=== PATIENT | female | born 1955 | race Caucasian/White ===

== ENCOUNTER → 2017-01-11 | Outpatient (CLI) | payer OTHER ==
[~2017-01-11] MED LIST: ASPEC81 PO; EST1 PO; GABA-113 PO; GEMF600T3 PO; GLC500 PO; INSU70IN2 SC; OXYC-57 PO; VITA400C15 PO
--- NOTE | 2017-01-11 14:42 | MAMMOGRAPHY REPORT ---
BILATERAL DIGITAL SCREENING MAMMOGRAM TOMOSYNTHESIS WITH CAD: 01/11/2017 CLINICAL HISTORY: Routine screening. Patient has no complaints. TECHNIQUE: Breast tomosynthesis in addition to standard 2D mammography was performed. Current study was also evaluated with a Computer Aided Detection (CAD) system. COMPARISON: Comparison is made to exams dated: 07/20/2015 mammogram, 07/17/2014 mammogram, 3 mammogram, 06/25/2012 mammogram, 06/22/2011 mammogram, and 06/21/2010 mammogram - [facility]. BREAST COMPOSITION: There are scattered areas of fibroglandular density in both breasts. FINDINGS: No suspicious masses, calcifications, or areas of architectural distortion are noted in ei ther breast. There has been no significant interval change compared to prior exams. IMPRESSION: ACR BI-RADS CATEGORY 1: NEGATIVE There is no mammographic evidence of malignancy. A 1 year screening mammogram is recommended. The pa tient will receive written notification of the results. Approximately 10% of breast cancers are not detected with mammography. A negative mammographic report should not delay biopsy if a clinically suggestive mass is present. Patti Goyal M.D. ah/:01/11/2017 12:50:24 Storeroom Supervisor: Mitchell FLORES(R)(M), [facility] letter sent: Normal 1/2 BI-RADS Code: ACR BI-RADS Category 1: Negative
== END | disposition home or self-care (01) ==
LOC: C.MAMM 08:37
PROVIDERS: ATTEND Family Medicine
DX: Z12.31 Encounter for screening mammogram for malignant neoplasm of breast (principal)

== ENCOUNTER 2024-03-03 11:19 | Inpatient (IN) ==
--- NOTE | 2024-03-03 12:18 | Emergency Department Note ---
Impression & Plan Stroke ED Provider Note Name: SANYA SPRAGUE Age: 68 Sex: Female Arrives Via: Walk-In Informant: Patient ED Provider: Tian Frausto MD Chief Complaint: Stroke evaluation Impression: As per impressions above Medical Decision Making: Pleasant 68-year-old female with history dyslipidemia, type 2 diabetes, smoking history, family history of stroke arrives for evaluation of strokelike symptoms ongoing for the last week. She is already been evaluated outside hospital where CT head and CTA were obtained which she reports were unremarkable. She had been discharged from their facility to attempt getting outpatient MRI versus go to other ER apparently. Patient arrives with weakness of the left face and left leg and some ataxia issues. Not a stroke alert or TNKase candidate given symptoms going on for a week now. CT of the head was obtained here without angios as they do ready been obtained. CT of the head does show an evolving stroke. She is already on aspirin and Plavix. I discussed the case with the hospitalist will bring her in for further management and workup. Triage/Nursing Notes reviewed by Me External Chart Review by me: I did review the records that the patient brought from her discharge from [facility] 02/29/2024 noting EKG laboratory and imaging findings. Differential: Stroke, dissection, migraine, intracranial hemorrhage, tumor, electrolyte imbalance, spinal pathology, many other pathologies considered Vital Signs: reviewed and remarkable for no significant abnormalities Labs:ED labs Reviewed by me and remarkable for no significant abnormalities Imaging:CT of the head without contrast as per my informal interpretation reveals no intracranial hemorrhage or mass effect. Per radiologist there is concerning findings for stroke in the basal ganglia EKG:As per my interpretation. Indication strokelike symptoms. Normal sinus rhythm at 67 bpm with a left bundle branch block. No ectopy no ischemia appreciated. QTc 494. When compared EKG of February 29, 2024 from [facility] similar morphology Consults:Discussed with Dr. Henao of the [facility] service who will bring in for further management and evaluation. Plan: Disposition:Hospitalization. Condition: Good History of Present Illness: 68-year-old female arrives for evaluation of strokelike symptoms. Patient notes that last Sunday (1 week ago) patient noted she awoke feeling foggy and felt like she was not moving as quickly as she usually did. Over the next couple days she noted her left leg seemed to be dragging at times. On Sunday she was pulled over by the police because she was driving somewhat erratically. Patient notes she does not really remember the episode very well but ended up going to [facility]. While there she started feeling better. They had told her that her left face was weak and her left leg was weak. They obtained a CT of the head with angiography of the head and neck. They told her that she most likely had a stroke and started on aspirin and Plavix. Patient was offered to wait 3 days and they are ER for a bed out and need to get an MRI versus being discharged to go on her own accord. Patient opted to be discharged. She arrives this morning as she attempted to see her PCP instead of going to ER but was told by PCP office that she should come to the ER for further evaluation and get MRI done. Patient states she is currently feeling well. She does not currently have any sort of headache or fatigue. She admits that she just cannot walk straight any longer. Her left leg is weaker than the right. No worsening over the last few days. She has not noticed any weakness in her hands. Denies any visual changes. No falls, trauma, injuries. She is denying any chest pain, shortness of breath, abdominal pain, nausea, vomiting, leg swelling, bleeding/bruising, other concerning signs or symptoms. Past Medical History: Dyslipidemia, left bundle branch block, type 2 diabetes Patient notes she has a 20-year smoking history having quit few months ago. Home Medications: Aspirin 81 mg, Plavix 75 mg daily amongst others see below. Allergies: Soma, morphine, statins, sulfa Vitals:Blood Pressure: 106/83, Pulse 85, RR 16, T 36.6C, O2 98% on RA Physical Exam: GENERAL: Patient is well appearing and in no acute distress. RESPIRATORY: No dyspnea. Clear to auscultation and equal bilaterally. CARDIOVASCULAR: Regular rate and rhythm.No murmur appreciated. GASTROINTESTINAL: Abdomen soft, non-tender, no peritonitis. BACK: No midline tenderness, no CVA tenderness EXTREMITIES: Normal motion all extremities, no cyanosis, no edema. NEUROLOGIC: Alert and oriented. Some vague left lower facial weakness and mild left periorbital muscular weakness. Fully controllable with voluntary motion. No other cranial nerve deficits appreciated. Patient does not have any ataxia of arms and has 5 out of 5 strength. She does have 5 out of 5 strength bilateral legs though left is somewhat weaker and appears a bit ataxic having not been able to do typical [id number]. SKIN: No rash, no jaundice, no diaphoresis. PSYCH: Appropriate GCS: 15 ED Course: Times/Reassessments: Patient stable throughout comfortable. Although patient was initially seen in critical pathways waiting room while awaiting her bed. 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 History of diabetic ulcer of foot Transient ischemic attack (TIA) few years ago, no deficits LBBB (left bundle branch block) Seasonal allergies Diverticular disease GERD (gastroesophageal reflux disease) Anxiety Peripheral neuropathy Hyperlipidemia Surgical History History of cholecystectomy Family history of reaction to anesthesia MOTHER/SISTER PONV Hx of cataract extraction BILAT History of hysterectomy Hx of foot surgery LEFT HAMMER TOE FIXED THEN INFECTED WITH AMPUTATION Hx of rotator cuff surgery LEFT History of colonoscopy Family History Sister Family history of diabetes mellitus Brother Family history of diabetes mellitus Mother Family history of diabetes mellitus Father Family history of diabetes mellitus Social History Smoking Status: Former smoker Tobacco Type: Cigarettes Do You Dip or Chew Tobacco: No; Hx Alcohol Use: No Hx Substance Use: No Preferred Language: Turkish Communication Ability: Effective Therapist Rrt Required: No Beliefs That Will Affect Care: None Current Living Situation: Spouse Feels Safe at Home: Yes Safety Concerns: Feels Safe At This Time Assistive Devices: Denture - Upper and Glasses Assistive Devices Comment: partial - upper Allergies Allergies Allergy/AdvReac Type Severity Reaction Status Date / Time carisoprodol [From Soma] Allergy Intermediate CONFUSED/COULD Verified 03/03/24 13:45 NOT MOVE morphine Allergy Intermediate SWELLING, Verified 03/03/24 13:45 HIVES [id number] Reductase Allergy Intermediate Hives Verified 03/03/24 13:45 Inhibitor Sulfa (Sulfonamide Allergy Intermediate Hives Verified 03/03/24 13:45 Antibiotics) Home Meds Home Medications Medication Instructions Recorded Confirmed aspirin 81 mg tablet,delayed 81 mg PO PM 08/15/19 03/03/24 release (Aspir-) gemfibrozil 600 mg tablet 600 mg PO BID 08/15/19 03/03/24 insulin aspart U-100 100 unit/mL 1 unit subcut BID 08/15/19 03/03/24 (3 mL) subcutaneous pen (Novolog FlexPen U-100 Insulin aspart) insulin degludec 200 unit/mL (3 50 unit subcut QAM 08/15/19 03/03/24 mL) subcutaneous pen (Tresiba FlexTouch U-200 insulin) citalopram 10 mg tablet 10 mg PO QAM 09/30/19 03/03/24 albuterol sulfate 90 mcg/actuation 2 puff inhalation QID PRN SHORT OF 02/16/20 03/03/24 aerosol inhaler (Ventolin HFA) BREATH omeprazole 20 mg tablet,delayed 20 mg PO PM 02/16/20 03/03/24 release gabapentin 400 mg capsule 400 mg PO TID 02/08/24 03/03/24 cephalexin 500 mg capsule 500 mg PO Q8H 03/03/24 03/03/24 cholecalciferol (vitamin D3) 50 2,000 unit PO PM 03/03/24 03/03/24 mcg (2,000 unit) capsule clopidogrel 75 mg tablet 75 mg PO PM 03/03/24 03/03/24 metformin 500 mg tablet,extended 1,000 mg PO BID 03/03/24 03/03/24 release 24 hr Results & Data (ED) Vital Signs Vital Signs - 24 hr 03/03/24 11:21 03/03/24 13:43 03/03/24 13:44 Temperature 36.6 C Temperature Source Temporal Artery Scan Pulse Rate 85 Pulse Rate [Apical] 42 L Respiratory Rate 16 18 Respiratory Effort / Characteristics Non-Labored Spontaneous Non-Labored Spontaneous Respiratory Depth Normal Normal Respiratory Pattern Regular Blood Pressure 106/83 Blood Pressure [Right Arm] 144/71 H Blood Pressure Mean 90 Blood Pressure Mean [Right Arm] 95 Pulse Oximetry 98 98 98 Oxygen Delivery Method Room Air Room Air Room Air Sepsis Recent Fever Within 48 Hours No Sepsis New/Unexplained Change in Mental Status No Sepsis Action Taken by Nursing No Action Required Laboratory Data 03/04/24 07:13 03/04/24 07:13 Lab Results 03/03/24 Range/Units 11:47 WBC Cancelled RBC Cancelled Hgb Cancelled Hct Cancelled MCV Cancelled MCH Cancelled MCHC Cancelled RDW Std Deviation Cancelled RDW Coeff of Cameron Cancelled Plt Count Cancelled MPV Cancelled Absolute Nucleated RBC Cancelled Nucleated RBC % (auto) Cancelled Platelet Estimate Cancelled PT Cancelled INR Cancelled APTT Cancelled PTT Ratio Cancelled Sodium 131 L (136-145) mmol/L Potassium 4.5 (3.5-5.1) mmol/L Chloride 100 (98-107) mmol/L Carbon Dioxide 24 (21-32) mmol/L Anion Gap 7 (3-11) BUN 11 (6-23) mg/dl Creatinine 0.56 L (0.6-1.2) mg/dl Est Cr Clr Drug Dosing 88.6 ml/min Est GFR ( Amer) 110.3 ml/min Est GFR (Non-Af Amer) 95.1 ml/min BUN/Creatinine Ratio 19.6 (10-20) Glucose 225 H (70-99(Fasting)) mg/dl Calcium 9.7 (8.6-10.3) mg/dl Magnesium 1.7 (1.7-2.4) mg/dl Total Bilirubin 0.4 (0.2-1.0) mg/dl AST 17 (13-39) U/L ALT 13 (7-52) U/L Alkaline Phosphatase 93 (34-104) U/L Total Protein 7.2 (6.0-8.3) gm/dl Albumin 4.3 (3.4-5.0) gm/dl Globulin 2.9 (2.5-4.0) gm/dl Albumin/Globulin Ratio 1.5 (0.9-2) Administered Medications Aspirin (Aspirin 81 Mg Ectab) 81 mg PO PM [facility] Stop: 04/02/24 20:59 Last Admin: 03/03/24 20:37 Dose: 81 mg Documented By: ALEKSANDR Cephalexin HCl (Cephalexin 500 Mg Cap) 500 mg PO Q8 [facility]; Protocol Stop: 03/08/24 23:59 Last Admin: 03/04/24 05:45 Dose: 500 mg Documented By: Admin: 03/03/24 21:27 Dose: 500 mg Documented By: JASMYNE Citalopram Hydrobromide (Citalopram 20 Mg Tab) 10 mg PO QAM [facility] Stop: 04/03/24 08:59 Last Admin: 03/04/24 08:23 Dose: 20 mg Documented By: HUNTER Clopidogrel Bisulfate (Clopidogrel Bisulfate 75 Mg Tab) 75 mg PO PM [facility] Stop: 04/02/24 20:59 Last Admin: 03/03/24 20:37 Dose: 75 mg Documented By: ALEKSANDR Enoxaparin Sodium (Enoxaparin Inj 40 Mg/0.4 Ml Syr) [facility]: 04/03/24 08:59 Last Admin: 03/04/24 08:23 Dose: 40 mg Documented By: HUNTER Gabapentin (Gabapentin 400 Mg Cap) 400 mg PO TID [facility] Stop: 04/02/24 20:59 Last Admin: 03/04/24 08:24 Dose: 400 mg Documented By: Admin: 03/03/24 20:37 Dose: 400 mg Documented By: ALEKSANDR Gemfibrozil (Gemfibrozil 600 Mg Tab) 600 mg PO BID [facility] Stop: 04/02/24 20:59 Last Admin: 03/04/24 08:24 Dose: 600 mg Documented By: Admin: 03/03/24 20:37 Dose: 600 mg Documented By: ALEKSANDR Insulin Aspart (Insulin Aspart Per Unit Charge) 0 units SC ACHS [facility] Stop: 04/02/24 20:59 Last Admin: 03/04/24 08:01 Dose: Not Given Documented By: Admin: 03/03/24 20:25 Dose: Not Given Documented By: ALEKSANDR Co-signed By: PERRY Insulin Glargine (Lantus Per Unit Charge) 15 units SQ BID [facility] Stop: 04/02/24 20:59 Last Admin: 03/04/24 08:27 Dose: Not Given Documented By: Admin: 03/03/24 20:38 Dose: 15 units Documented By: ALEKSANDR Co-signed By: CHANDNI Pantoprazole Sodium (Pantoprazole 40 Mg Tab) 40 mg PO PM [facility]; Protocol Stop: 04/02/24 20:59 Last Admin: 03/03/24 20:37 Dose: 40 mg Documented By: ALEKSANDR Vitamin D (Cholecalciferol 25 Mcg (1000 Units) Tab) 50 mcg PO PM [facility] Stop: 04/02/24 20:59 Last Admin: 03/03/24 20:37 Dose: 50 mcg Documented By: ALEKSANDR Discontinued Medications Gadobutrol (Gadobutrol 65ml Vial) 6.5 ml IV ONCE ONE Stop: 03/03/24 17:20 Last Admin: 03/03/24 17:20 Dose: 6.5 ml Documented By: RITA Lorazepam 1 mg/ Syringe 1 mls @ 2 mls/min IV NOW PRN PRN Reason: anxiety Last Admin: 03/03/24 16:18 Dose: 2 mls/min Documented By: ALS Discharge Plan Visit Data Chief Complaint: TIA Symptoms Stated Complaint: POSSIBLE TIA, PREVIOUS BLURRY VISION ED Provider: Tian Frausto Discharge Problem: Stroke Patient Disposition: Admitted As Inpatient Discharge Instructions Interventions: ED Discharge Assessment Last Done: 03/03/24 20:32 Discharge Problem: Stroke Qualifiers: CVA mechanism: unspecified Qualified Code(s): I63.9 - Cerebral infarction, unspecified
[2024-03-03 12:20] LABS: Albumin Globulin Ratio 1.5 (0.9-2); Albumin Level 4.3 gm/dl (3.4-5.0); BUN Creatinine Ratio 19.6 (10-20); Bilirubin,Total 0.4 mg/dl (0.2-1.0); Calcium 9.7 mg/dl (8.6-10.3); Creatinine Clr Calc Pharmacy 88.6 ml/min; Est GFR (African American) 110.3 ml/min; Est GFR (Non-African American) 95.1 ml/min; Globulin 2.9 gm/dl (2.5-4.0); Magnesium 1.7 mg/dl (1.7-2.4); Potassium 4.5 mmol/L (3.5-5.1); Total Protein 7.2 gm/dl (6.0-8.3)
--- NOTE | 2024-03-03 12:54 | XRay Report ---
XR chest 1V not portable HISTORY: Stroke symptoms. COMPARISON: None. FINDINGS: The lungs are clear. Cardiac silhouette is normal in size. No pleural effusions. No pneumot horax. Calcifications within the aortic knob. Prior cholecystectomy. No acute fractures. IMPRESSION: No acute process. ACT 112: Negative or not required by law. Electronically signed by: Ray Gallegos M.D. 03/03/2024 12:52 PM
--- NOTE | 2024-03-03 13:11 | CT Scan Report ---
HEAD CT NONCONTRAST CT DOSE: 547.75 mGy.cm HISTORY: Left sided weakness x 1 week TECHNIQUE: Multiaxial CT images of the head were performed without the use of intravenous contrast. A utomated exposure control was utilized for this study. A dose lowering technique was utilized adheri ng to the principles of ALARA. Comparison: None. Findings: The paranasal sinuses and mastoid air cells are clear. The calvarium and skull base are int act. Moderate calcifications within the carotid siphons. White matter hypodensity is nonspecific but suggestive of microvascular ischemic change. The ventricles and sulci demonstrate mild age-related in volutional changes. There is a 15 mm hypodense focus within the right basal ganglia near the posterio r limb of the right internal capsule best seen on image 14. This is age indeterminate but could repre sent a subacute to chronic infarct. There is no mass, hematoma, midline shift. Impression: 1. A 15 mm hypodense focus within the right basal ganglia. This is consistent with an age-indetermina te infarct but could be subacute to chronic. Consider follow-up brain MRI for further evaluation. 2. No acute intracranial hemorrhage. 3. Atrophy and microvascular ischemic changes are noted. ACT 112: Negative or not required by law. Electronically signed by: Ray Gallegos M.D. 03/03/2024 1:08 PM
--- NOTE | 2024-03-03 13:36 | History & Physical Report ---
Date of Service March 03, 2024 Assessment & Plan (1) Stroke: Plan: This is a 68 y/o female with hypercholesterolemia, intermittent LBBB, DM2, prior TIAs, recurrent diverticulitis, and other history as outlined below who presents to the ED after having a stroke one week ago. She was seen in the [facility] ED last week but signed out because she preferred not to wait to be transferred for an MRI at another facility. She came to the ED today for work-up because of her upcoming colon resection and her residual deficits. She initially called her PCP to try to have the MRI outpatient but they referred her to the ED today. CT of the brain was personally reviewed and shows hypodense focus c/w CVA. Pt was referred for admission for further work-up and management. On the monitor in the ED, she was also noted to have episodes of bradycardia with HRs into the low 40s . Denied associated symptoms with these episodes in the ED but has had episodes of dizziness at home. - Admit to PCU - Brain MRI/MRA for further work-up of suspected CVA - PT/OT evaluations - Denies dysphagia, witnessed swallowing liquid without difficulty so speech evaluation deferred - Continue aspirin and Plavix as started by the ED provider last week - Neurology consult - Check ECHO - Lipid panel and A1c in the AM (2) Bradycardia: Plan: Episodes of bradycardia noted on monitor in the ED - pt was told by another provider that she may need pacemaker placement. Not on any AV larissa blocking agents at present Consult cardiology for recommendations EKG in the AM (3) Diabetes mellitus, type 2: Plan: Holding metformin Continue basal/bolus insulin A1c in the AM BSG ACHS Diabetic diet (4) Hypercholesterolemia: Plan: Unable to take a statin due to hives when taken previously Lipid panel in the AM Continue gemfibrozil (5) Diabetic peripheral neuropathy associated with type 2 diabetes mellitus: Plan: Chronic, continue gabapentin as taken outpatient Plan Pt seen and reviewed with collaborating physician, Dr. Henao. Plan of care discussed and as outlined above. Code status: DNR/DNI DVT prophylaxis: Lovenox Admit to PCU for further evaluation and management. Eve White PA-C Addendum: Brain MRI images personally reviewed - findings consistent with suspected CVA. No change to initial plan. Eve White PA-C History of Present Illness Chief Complaint: Stroke Primary Care Provider: Leander Abrams, This is a 68 y/o female with hypercholesterolemia, intermittent LBBB, DM2, prior TIAs, recurrent diverticulitis, and other history as outlined below who presents to the ED after having a stroke one week ago. Pt reports that she woke up last Sunday with stroke-like symptoms - "everything felt foggy and fuzzy." She didn't come in for evaluation at that time because she knew it had been more than three hours since her symptoms started and she didn't think anything could be done. She describes feeling like she was off balance and couldn't walk straight. She was seen in the ED at [facility] on Sunday after the police pulled her over for driving erratically. The ED provider suspected that she had a stroke although initial imaging was negative. He also told her that she likely needed to get a pacemaker placed although she reports that she has never been told this before. [place] [facility] She denies chest pain or tightness, dyspnea on exertion, syncope. Has had occasional episodes of lightheadedness, may be worse with position changes. She was started on Plavix by the ED provider last week and has been taking this as prescribed as well as continuing to take a low-dose aspirin daily. Denies dysphagia but still has a mild facial droop for the last week that others have told her about although pt reports she doesn't notice it. She is also having weakness in the left leg since last Sunday, which is causing her to have trouble walking and she reports that she leans to the left with ambulation. She does not use a cane or walker at baseline. Pt has a reported history of prior TIAs but she is unsure what symptoms she had starting that she only knows she has these because they were seen on imaging. She is scheduled for a colon resection later this week due to recurrent diverticulitis. Lexiscan Cardiolite 09/03/2019 showed: 1. No scintigraphic evidence of a prior myocardial infarction or stress-induced myocardial ischemia. 2. No Lexiscan induced chest pain. 3. No Lexiscan induced EKG changes. 4. Normal left ventricular systolic function without wall motion abnormality. Left ventricular ejection fraction is 67%. Allergies Allergy/AdvReac Type Severity Reaction Status Date / Time carisoprodol [From Soma] Allergy Intermediate CONFUSED/COULD Verified 03/03/24 13:45 NOT MOVE morphine Allergy Intermediate SWELLING, Verified 03/03/24 13:45 HIVES Qcraorj-HAA-LhX Reductase Allergy Intermediate Hives Verified 03/03/24 13:45 Inhibitor Sulfa (Sulfonamide Allergy Intermediate Hives Verified 03/03/24 13:45 Antibiotics) Home Medications Medication Instructions Recorded Confirmed Type aspirin 81 mg tablet,delayed 81 mg PO PM 08/15/19 03/03/24 History release (Aspir-) gemfibrozil 600 mg tablet 600 mg PO BID 08/15/19 03/03/24 History insulin aspart U-100 100 unit/mL 1 unit subcut BID 08/15/19 03/03/24 History (3 mL) subcutaneous pen (Novolog FlexPen U-100 Insulin aspart) insulin degludec 200 unit/mL (3 50 unit subcut QAM 08/15/19 03/03/24 History mL) subcutaneous pen (Tresiba FlexTouch U-200 insulin) citalopram 10 mg tablet 10 mg PO QAM 09/30/19 03/03/24 History albuterol sulfate 90 mcg/actuation 2 puff inhalation QID PRN SHORT OF 02/16/20 03/03/24 History aerosol inhaler (Ventolin HFA) BREATH omeprazole 20 mg tablet,delayed 20 mg PO PM 02/16/20 03/03/24 History release gabapentin 400 mg capsule 400 mg PO TID 02/08/24 03/03/24 History cephalexin 500 mg capsule 500 mg PO Q8H 03/03/24 03/03/24 History cholecalciferol (vitamin D3) 50 2,000 unit PO PM 03/03/24 03/03/24 History mcg (2,000 unit) capsule clopidogrel 75 mg tablet 75 mg PO PM 03/03/24 03/03/24 History metformin 500 mg tablet,extended 1,000 mg PO BID 03/03/24 03/03/24 History release 24 hr Past Med/Surg History Problem List (Updated 03/03/24 @ 17:04 by Ntai White PA-C) Bradycardia Diabetes mellitus, type 2 Stroke LBBB (left bundle branch block) Hypercholesterolemia Diverticulosis (Acute 07/17/13) Diabetic peripheral neuropathy associated with type 2 diabetes mellitus Medical History (Updated 03/03/24 @ 17:04 by Nati White PA-C) 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 History of diabetic ulcer of foot Transient ischemic attack (TIA) few years ago, no deficits LBBB (left bundle branch block) Seasonal allergies Diverticular disease GERD (gastroesophageal reflux disease) Anxiety Peripheral neuropathy Hyperlipidemia Surgical History History of cholecystectomy Family history of reaction to anesthesia MOTHER/SISTER PONV Hx of cataract extraction BILAT History of hysterectomy Hx of foot surgery LEFT HAMMER TOE FIXED THEN INFECTED WITH AMPUTATION Hx of rotator cuff surgery LEFT History of colonoscopy Family History Sister Family history of diabetes mellitus Brother Family history of diabetes mellitus Mother Family history of diabetes mellitus Father Family history of diabetes mellitus Social History Smoking Status: Former smoker Tobacco Type: Cigarettes Do You Dip or Chew Tobacco: No; Hx Alcohol Use: No Hx Substance Use: No Preferred Language: Surinamese Communication Ability: Effective Telecommunications Cable Jointer Required: No Beliefs That Will Affect Care: None Current Living Situation: Spouse Feels Safe at Home: Yes Assistive Devices: Denture - Upper and Glasses Review of Systems Review of Systems: All systems reviewed & are unremarkable except as noted in Subjective Physical Exam Physical Exam: For details of the physical examination, please see the physician addendum. Results & Data Results & Data Vital Signs (Past 12 Hours) Vital Signs Temp Pulse Resp BP Pulse Ox O2 Del Method 03/03/24 11:21 36.6 C 85 16 106/83 98 Room Air Laboratory Results Lab Results 03/03/24 Range/Units 11:47 WBC Cancelled RBC Cancelled Hgb Cancelled Hct Cancelled MCV Cancelled MCH Cancelled MCHC Cancelled RDW Std Deviation Cancelled RDW Coeff of Cameron Cancelled Plt Count Cancelled MPV Cancelled Absolute Nucleated RBC Cancelled Nucleated RBC % (auto) Cancelled Platelet Estimate Cancelled PT Cancelled INR Cancelled APTT Cancelled PTT Ratio Cancelled Sodium 131 L (136-145) mmol/L Potassium 4.5 (3.5-5.1) mmol/L Chloride 100 (98-107) mmol/L Carbon Dioxide 24 (21-32) mmol/L Anion Gap 7 (3-11) BUN 11 (6-23) mg/dl Creatinine 0.56 L (0.6-1.2) mg/dl Est Cr Clr Drug Dosing 88.6 ml/min Est GFR ( Amer) 110.3 ml/min Est GFR (Non-Af Amer) 95.1 ml/min BUN/Creatinine Ratio 19.6 (10-20) Glucose 225 H (70-99(Fasting)) mg/dl Calcium 9.7 (8.6-10.3) mg/dl Magnesium 1.7 (1.7-2.4) mg/dl Total Bilirubin 0.4 (0.2-1.0) mg/dl AST 17 (13-39) U/L ALT 13 (7-52) U/L Alkaline Phosphatase 93 (34-104) U/L Total Protein 7.2 (6.0-8.3) gm/dl Albumin 4.3 (3.4-5.0) gm/dl Globulin 2.9 (2.5-4.0) gm/dl Albumin/Globulin Ratio 1.5 (0.9-2) Diagnostic Findings Chest X-Ray 03/03/24 11:26 XR chest 1V not portable HISTORY: Stroke symptoms. COMPARISON: None. FINDINGS: The lungs are clear. Cardiac silhouette is normal in size. No pleural effusions. No pneumothorax. Calcifications within the aortic knob. Prior cholecystectomy. No acute fractures. IMPRESSION: No acute process. ACT 112: Negative or not required by law. Electronically signed by: Ray Gallegos M.D. 03/03/2024 12:[address] 03/03/24 12:[address] DOSE: 547.75 mGy.cm HISTORY: Left sided weakness x 1 week TECHNIQUE: Multiaxial CT images of the head were performed without the use of intravenous contrast. Automated exposure control was utilized for this study. A dose lowering technique was utilized adhering to the principles of ALARA. Comparison: None. Findings: The paranasal sinuses and mastoid air cells are clear. The calvarium and skull base are intact. Moderate calcifications within the carotid siphons. White matter hypodensity is nonspecific but suggestive of microvascular ischemic change. The ventricles and sulci demonstrate mild age-related involutional changes. There is a 15 mm hypodense focus within the right basal ganglia near the posterior limb of the right internal capsule best seen on image 14. This is age indeterminate but could represent a subacute to chronic infarct. There is no mass, hematoma, midline shift. Impression: 1. A 15 mm hypodense focus within the right basal ganglia. This is consistent with an age-indeterminate infarct but could be subacute to chronic. Consider follow-up brain MRI for further evaluation. 2. No acute intracranial hemorrhage. 3. Atrophy and microvascular ischemic changes are noted. ACT 112: Negative or not required by law. Electronically signed by: Ray Gallegos M.D. 03/03/2024 1:08 PM Supervising Physician Co-Signing Physician Notes I have seen and discussed the case with the collaborating advanced practitioner. I agree with the above H&P. I have reviewed and confirmed the patients medical history, the findings on physical examination, and the patients diagnosis and treatment plan with Cindy FRANCO and agree with the information documented. In short, Ms. Sommers is a 68 year old woman with history of recurrent diverticulitis, HLD, intermittent LBBB, DMTII c/b neuropathy admitted for concerns of stroke which occurred on 02/24 Patient noted left facial droop and LLE weakness as well as vertiginous like symptoms--marked by the sensation of being "unsteady, like on a boat." Waited to present as she didn't think anyone was going to "do anything" to fix it base on the fact she woke from her sleep like this Patient reports feeling a bit dizzy GENERAL APPEARANCE: AxOx4, pleasant woman no acute distress. HEENT: NC, AT. MMM. EOMI, clear conjunctiva, oropharynx clear. NECK: Supple without lymphadenopathy. No stiffness or restricted ROM. HEART: bradycardic to 40s, regular, no murmur LUNGS: CTAB, moving air well. No crackles or wheezes are heard. ABDOMEN: Soft, nontender, nondistended with good bowel sounds heard. BACK: No CVAT, no obvious deformity. EXTREMITIES: Without cyanosis, clubbing or edema. NEUROLOGICAL: mild left facial droop/flattening of nasolabial fold, other cranial nerves seemingly intact; strength in BUE 5/5, 4/5 LLE strength, 5/5 RLE strength, no pronator drift Skin: Warm and dry without any rash. #Subacute Stroke c/b left facial droop and LLE weakness CT A 15 mm hypodense focus within the right basal ganglia. Started on DAPT on 02/28, continue Reports allergy to statin Continue home gemfibrozil Neuro consult ECHO ordered lipid panel and A1C in am PT/OT #Sinus bradycardia rates as low as low 40s, reports dizziness at home, no sycope Admit to PCU tele Cards consult avoid AV larissa blocking agents Rest of plan as above I spent a total of 35 minutes coordinating, documenting, and providing care for this patient excluding time spent in the performance of separately billed services. All of the aforementioned completed outside of collaborating with the assigned advanced practitioner for a full treatment plan. 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
[2024-03-03 15:10] LABS: Hematocrit (blood only) 35.9 % (37.0-47.0); Hemoglobin 12.1 g/dl (12.0-16.0); Mean Corpuscular Hemoglobin 27.9 pg (25.0-34.0); Mean Corpuscular Hgb Conc 33.7 g/dL (32.0-36.0); Mean Corpuscular Volume 82.7 fL (80.0-100.0); Mean Platelet Volume 11.2 fL (9.4-12.4); Platelet Count 233 K/uL (130-400); Red Blood Count 4.34 M/uL (4.20-5.40); White Blood Count 7.78 K/ul (4.8-10.8)
[2024-03-03 15:36] LABS: Partial Thromboplastin Ratio 1.1; Partial Thromboplastin Time 29 Seconds (21-31); Prothrombin Time 10.9 Seconds (9.0-12.0)
[2024-03-03] MEDS ORDERED: ACETAMINOPHEN 325 MG TAB PO PRN (16:02)
[2024-03-03] MEDS: LORazepam 1 MG in SYRINGE 0.5 ML IV PRN (16:18)
[2024-03-03] MEDS: GADOBUTROL 65ML VIAL IV ONE (17:20)
--- NOTE | 2024-03-03 18:07 | Magnetic Resonance Report ---
MR brain wo/w con CLINICAL HISTORY: stroke TECHNIQUE: Multiplanar and multisequence MR images of the brain were obtained prior to and following administration of gadolinium contrast. Comparison: Comparison is made to CT head 03/03/2024 FINDINGS: There is a focus of restricted diffusion in the right basal ganglia corresponding to the hyperdense f ocus on prior CT head. There is associated edema but no evidence of hemorrhagic transformation. Foci of T2 and FLAIR hyperintensity are noted in the paraventricular areas consistent with chronic small v essel ischemic disease. Ex vacuo ventriculomegaly and sulcal enlargement is noted compatible with dif fuse volume loss. No mass or abnormal enhancement is seen. There is no mass effect or midline shift. There is no evidence of acute intraparenchymal hemorrhage. No extra axial fluid collections are seen. The corpus callosum, pituitary gland, and cerebellar tonsils appear grossly unremarkable. Flow voids of the major intracranial arterial vessels are identified. The imaged portions of the para nasal sinuses, mastoid air cells, and orbits are unremarkable. IMPRESSION: Focus of restricted diffusion in the right basal ganglia corresponds to the hyperdense focus on the p rior CT head. Findings are compatible with acute infarct. ACT 112: Negative or not required by law. Electronically signed by: Alberto Koenig M.D. 03/03/2024 6:05 PM
--- NOTE | 2024-03-03 18:09 | Magnetic Resonance Report ---
MR angio neck wo/w con, MR angio head wo con CLINICAL HISTORY: stroke TECHNIQUE: 3D time of flight MRA of the head and neck was performed without intravenous contrast. 3-D reconstructions were obtained in multiple planes. Comparison: None available at the time of this dictation. FINDINGS: Flow signal consistent with patency is shown within the common carotid, cervical segments of the inte rnal carotid, external carotid, and vertebral arteries. No aneurysm, dissection, hemodynamically sign ificant flow stenosis, nor occlusion is present. Flow signal is shown in the intracranial segments of the internal carotid arteries, the anterior, mid dle and posterior cerebral arteries, the anterior and posterior communicating arteries, cerebellar ar teries, the intracranial segments of the vertebral arteries, and the basilar artery. No aneurysm, ar teriovenous malformation, dissection, nor hemodynamically significant flow stenosis is shown. Assessment of stenosis of the internal carotid arteries is based on NASCET criteria. IMPRESSION: No evidence of acute intracranial abnormality. In particular, no occlusion, hemorrhage, or aneurysmal disease is seen. Patency of the bilateral carotid and vertebral arteries with no evidence of hemodyn amically significant stenosis. ACT 112: Negative or not required by law. Electronically signed by: Alberto Koenig M.D. 03/03/2024 6:08 PM
[2024-03-03] MEDS ORDERED: CARBOHYDRATES FOR HYPOGLYCEMIA PO PRN (18:16)
[2024-03-03] MEDS ORDERED: GLUCAGON FOR INJ 1 MG VIAL SQ PRN (18:16)
[2024-03-03] MEDS ORDERED: GLUCOSE 40% GEL 15 GM TUBE PO PRN (18:16)
[2024-03-03] MEDS ORDERED: DEXTROSE 50% 50 ML SYRINGE IV PRN (18:16)
[2024-03-03] MEDS ORDERED: GLUCOSE 10 TAB/TUBE PO PRN (18:16)
[2024-03-03] MEDS ORDERED: ALBUTEROL HFA 8 GM INHALER INH PRN (18:19)
--- OUTSIDE RECORDS SUMMARY | 2024-03-03 18:32 | External Medical Summary | Summary of Care ---
Author Name Unknown Organization [facility] Address [address] [place] [address] Phone [phone] Care Team Providers Care Chicken Handler Name Role Phone Jovanni Hammonds DO Primary Care Provider [phone] Reason for Visit * Reason Comments eRx-Medication Refill Encounter Details Date Type Department Care Team (Late st Contact Info) Description 02/25/2024 Refill Family Practice [facility] [place] [address] [facility] [place] [address] Jovanni Hammonds DO [address] [facility] [place] [address] Chronic rhinitis Allergies Active Allergy Reactions Criticality Noted Date Comments Carisoprodol 03/08/2022 Pollen 05/15/2017 Fall and winter allergies Atorvastatin Calcium 06/10/2019 Myalgias Morphine Sulfate 04/09/2002 hives following hospitalization recieved MS Sulfa Antibiotics Hives 06/14/2000 documented as of this encounter (statuses as of 02/25/2024) Medications Medication Sig Dispensed Refills Start Date End Date Status ASPIRIN EC 81 MG PO TBECIndications:Mix ed dyslipidemia,DM type 2, goal A1c below 7 1 TABLET DAILY 100 0 04/05/2007 Active oxyCODONE HCl 5 MG Oral Tablet (Oxy IR)Indications:Scia norah, unspecified laterality Take 1 Tablet by mouth daily as needed for Pain, Moderate or Pain, Severe. Take 1 Tab by mouth daily as needed for Pain. 60 Tablet 10/03/2022 Active Vitamin D3 50 MCG (2000 UT) Oral Capsule Take 1 Capsule by mouth in the morning. 90 Capsule 3 03/20/2023 Active Gemfibrozil 600 MG Oral Tablet (Lopid)Indications: Mixed dyslipidemia TAKE 1 TABLET BY MOUTH TWO TIMES DAILY BEFORE MEALS 180 Tablet 3 03/20/2023 Active Ibuprofen 800 MG Oral Tablet (Motrin)Indications :Sciatica, unspecified laterality Take 1 Tablet by mouth every 8 hours as needed for Pain, Moderate. with food for pain 60 Tablet 5 03/23/2023 Active Albuterol Sulfate HFA 108 (90 Base) MCG/ACT Inhalation Aerosol SolutionIndications :Acute bronchitis, antibiotics not indicated Inhale 2 Puffs by mouth in the morning and 2 Puffs at noon and 2 Puffs in the evening and 2 Puffs before bedtime. 18 g 5 06/11/2023 Active Tresiba FlexTouch 200 UNIT/ML Subcutaneous Solution Pen-injector INJECT 50 UNITS UNDER THE SKIN ONCE DAILY 90 mL 3 07/16/2023 07/15/20 24 Active NovoLOG FlexPen 100 UNIT/ML Subcutaneous Solution Pen-injectorIndicat ions:Type 2 diabetes mellitus with hemoglobin A1c goal of less than 7.0% ([facility]),DM type 2 causing neurological disease ([facility]) INJECT 1 unit per 10 carbs under the skin with meals. 30 mL 3 07/16/2023 Active BD Pen Needle Mini U/F 31G X 5 MM (Insulin Pen Needle)Indications: Type 2 diabetes mellitus with hemoglobin A1c goal of less than 7.0% ([facility]) Use 3 to 4 times daily 200 Each 5 08/10/2023 Active OneTouch Ultra In Vitro Strip (Glucose Blood)Indications:T ype 2 diabetes mellitus with hemoglobin A1c goal of less than 7.0% ([facility]) Test blood sugars 4 times daily 100 Strip 5 08/10/2023 Active metFORMIN HCl ER 500 MG Oral Tablet Extended Release 24 Hour (Glucophage XR)Indications:Type 2 diabetes mellitus with diabetic peripheral angiopathy without gangrene, unspecified whether intermodal customer service insulin use (HCC) TAKE 2 TABLETS BY MOUTH EVERY MORNING AND TAKE 2 TABLETS BY MOUTH AT BEDTIME 360 Tablet 1 09/11/2023 Active Omeprazole 20 MG Oral Capsule Delayed Release (PriLOSEC)Indicatio ns:Gastroesophageal reflux disease with esophagitis without hemorrhage TAKE 1 CAPSULE BY MOUTH EVERY DAY 1 HOUR BEFORE THE FIRST MEAL OF THE DAY 90 Capsule 1 09/11/2023 Active Ondansetron HCl 4 MG Oral Tablet Take 1 Tablet by mouth every 6 hours as needed for Nausea. 30 Tablet 09/12/2023 Active Citalopram Hydrobromide 10 MG Oral Tablet (CeleXA)Indications :Major depressive disorder, single episode, moderate (HCC) Take 1 Tablet by mouth in the morning. 90 Tablet 3 11/06/2023 Active Gabapentin 400 MG Oral Capsule (Neurontin)Indicati ons:Diabetic polyneuropathy associated with type 2 diabetes mellitus (HCC) Take 1 Capsule by mouth in the morning and 1 Capsule at noon and 1 Capsule before bedtime. 270 Capsule 3 12/24/2023 Active Bisacodyl 5 MG Oral Tablet Delayed Release (Dulcolax)Indicatio ns:Diverticulitis of sigmoid colon Take 4 tablets by mouth at noon day before surgery 4 Tablet 01/18/2024 Active metroNIDAZOLE 500 MG Oral Tablet (Flagyl)Indications :Diverticulitis of sigmoid colon Take 2 tabs by mouth on the day before surgery at 4, 5 and 11 PM. 6 Tablet 01/18/2024 Active Ondansetron 8 MG Oral Tablet Disintegrating (Zofran)Indications :Diverticulitis of sigmoid colon Dissolve 1 tablet on tongue at 11 a.m. the day before surgery and every 8 hours as needed for nausea related to bowel prep. 3 Tablet 01/18/2024 Active Polyethylene Glycol 3350 17 GM/SCOOP Oral Powder (MiraLax)Indication s:Diverticulitis of sigmoid colon Mix entire bottle with 2 liters of clear liquid and take by mouth between 1 PM and 3 PM the day before surgery 238 g 01/18/2024 Active Fluticasone Propionate 50 MCG/ACT Nasal Suspension (Flonase)Indication s:Chronic rhinitis SPRAY 2 SPRAYS INTO EACH NOSTRIL ONE TIME DAILY 48 mL 1 02/25/2024 Active Fluticasone Propionate 50 MCG/ACT Nasal Suspension (Flonase)Indication s:Chronic rhinitis SPRAY 2 SPRAYS INTO EACH NOSTRIL ONE TIME DAILY 48 mL 1 09/11/2023 02/25/20 24 Discontinued documented as of this encounter (statuses as of 02/25/2024) Active Problems Problem Noted Date Diagnosed Date Diverticulitis of sigmoid colon 01/17/2024 Mixed dyslipidemia 09/19/2023 Diabetic polyneuropathy asso ciated with type 2 diabetes mellitus 09/12/2023 Type 2 diabetes mellitus wit h diabetic peripheral angiopathy without gangrene 09/12/2022 Encounter for long-term (current) insulin use History of stroke 09/17/2019 Overview: historical Acquired absence of other left toe(s) 05/21/2018 H/O: hysterectomy 08/08/2016 Controlled substance agreement signed 05/11/2016 History of tobacco use 03/02/2015 Diverticulosis of colon 07/24/2013 Acquired hallux valgus of left foot 08/25/2012 DYSLIPIDEMIA, GOAL LDL BELOW 100 07/15/2009 Overview: Per Lipid Taxonomy. Type 2 diabetes mellitus wit h hemoglobin A1c goal of less than 7.0% 05/20/2009 Overview: Modified per Diabetes protocol #14. ICD-10 update of inactive term Polyp of vocal cord or larynx 02/08/2009 Reflux esophagitis 04/24/2008 Sciatica 08/14/2003 DM type 2 causing neurological disease 2 Major depressive disorder, single episode, moder ate documented as of this encounter (statuses as of 02/25/2024) Resolved Problems Problem Noted Date Diagnosed Date Resolved Date Routine general medical exam ination at a health care facility 12/02/2020 01/07/2021 Cardiomyopathy 01/14/2020 11/06/2023 Non-rheumatic aortic sclerosis 03/01/2017 11/06/2023 Verruca 01/19/2015 05/15/2017 Inflamed seborrheic keratosis 01/19/2015 07/20/2020 Brachioradial pruritus 01/19/201507/20 Lichen sclerosus et atrophicus of the vulva 01/13/2014 08/21/2019 Non-healing surgical wound 04/23/2012 1 09/03/2011 Overview: 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 No advance directive on file 01/04/2005 05/15/2017 Overview: Yes, Patient instructed to provide copy of advance directive for provider to review and to be scanned into Electronic Medical Record. Diabetic polyneuropathy 01/10/200202/04 Overview: ICD-10 update of inactive term Sciatica 08/29/2001 10/21/2001 Type 2 diabetes mellitus wit h hemoglobin A1c goal of less than 7.0% 11/05/2007 Overview: ICD-10 update of inactive term Mixed dyslipidemia Overview: Per Lipid Taxonomy. Need for prophylactic hormon e replacement therapy (postmenopausal) 06/02/2015 Tobacco use disorder 015 documented as of this encounter (statuses as of 02/25/2024) Immunizations Name Administration Dates Next Due COVID-19 mRNA, LNP-s, No Pre serve, 2-Dose Series (Moderna) 05/31/2021,10/13/2020,09/22/2020 COVID-19 mRNA, LNP-s, No Pre serve, 2-Dose Series (Pfizer) 11/29/2021 COVID-19, MRNA-LNP, 23-24, P F, 50 MCG/0.5 mL, 12 YRS AND ABOVE, IM (MODERNA-Spikevax) 05/24/2023 H1N1 2009 Influenza, IM 08/10/2009 Hepatitis B, 20+ yrs 10/05/2005 Pneumococcal Conjugate Vacc, 13 Valent (Prevnar) 03/02/2015 Pneumococcal Polysaccharide PPV23 (Pneumovax) 07/20/2020 Season Influenza, Quad, PF, Adjuvanted, 65+ Yrs, IM (FLUAD) 06/01/2022 Seasonal Influenza, PF, 6 M & above, IM , (FluLaval or Fluzone) 04/13/2020,06/10/2019,05/21/2018,05/06 Seasonal Influenza, Quadriva lent Hd (Fluzone Hd) 05/09/2023 Seasonal Influenza, Quadriva lent Hd, 65+ Yrs 04/18/2023 Seasonal Influenza, Quadriva lent, No Preserve, IM 05/30/2016,06/01/2015 Seasonal Influenza, Split, I IV3, With Preserve, Inj 06/01/2014,05/12/2013,04/22/2012,04/06,04/27/2010,06/30/2009,06/30/20 09,05/26/2008,05/16/2007,06/08/2006 04/20/2012 Seasonal Influenza, Trivalen t, Adjuvanted, 65+ yrs 06/07/2022,05/11/2021,04/13/2020 TD, Preservative Free 12/03/2018 TDAP, Age 7 and older, IM (Adacel) 10/12/2008 Varicella Zoster Vaccine (Adult) 11/30/2014 Zoster Vaccine Recombinant (Shingrix) 03/18/2020 ,01/15/2020 documented as of this encounter Social History Tobacco Use Types Packs/Day Years Used Date Smoking Tobacco: Former Cigarettes 0.3 12 0 12/05/1999 - 12/05/2011 Smokeless Tobacco: Never Alcohol Use Standard Drinks/Week Comments No 0 (1 standard drink = 0.6 oz pur e alcohol) PHQ-2 Answer Date Recorded PHQ Adult Total Score 0 10/03/2022 Hunger Vital Sign Answer Date Recorded Within the past 12 months, y ou worried that your food would run out before you got the money to buy more. Never true 10/03/19 23 Within the past 12 months, t he food you bought just didn't last and you didn't have money to get more. Never true 10/03/2022 Utilities Answer Date Recorded Do you have trouble paying y our heating, water, or electric bill? (Adult - for ages 18 years and over) Not on file 01/22/2024 Is your family able to pay t he heat, water, or electric bill? (Household - for ages 0-17 years) Not on file 01/22/2024 Does your family have access to good internet? (Household - for ages 0-17 years) Not on file 01/22/2024 Social Connections Answer Date Recorded How often do you feel lonely or isolated from those around you? (Adult - for ages 18 years and over) Not on file 01/22/2024 Sex and Gender Information Value Date Recorded Sex Assigned at Female 12/03/2018 8:08 AM EDT Gender Identity Female 12/03/2018 8:08 AM EDT Sexual Orientation Straight 12/03/2018 8 :08 AM EDT Job Start Date Occupation Industry Not on file Not on file Not on file documented as of this encounter Miscellaneous Notes * Telephone Encounter - Sai Moody [facility] - 02/25/2024 1:40 PM EDTSigned Prescriptions: Disp Refills Fluticasone Propionate 50 MCG/ACT Nasal [place]*48 mL 1 Sig: SPRAY 2SPRAYS INTO EACH NOSTRIL ONE TIME DAILYAuthorizing Provider: JOVANNI HAMMONDS User: SAI MOODY documented in this encounter Plan of Treatment Upcoming Encounters Date Type Department Care Team (Latest Contact Info) Description 03/06/2024 3:56 PM EDT Hospital Encounter [place] [facility], OPERATING ROOM [facility] [place], [facility] [address] [place] [address] Nahun Sarabia MD [address], [place] [id number] 03/06/2024 3:56 PM EDT - 03/06/2024 7:38 PM EDT Surgery OR [facility] [place], OPERATING ROOM [facility] [place], [facility] [address] [place] [address] Nahun Sarabia MD [address] [place] [address] LAPAROSCOPIC PARTIAL COLECTOMY WITH COLOPROCTOSTOMY 03/18/2024 9:30 AM EDT Nurse Only Ancillary [facility] [place] [address] [place] [address] Kimi Nurse Annual Wellness [facility] [address] [place] [address] 03/26/2024 10:30 AM EDT Office Visit General Surgery, [facility] [address] [place] [address] Kiki Rooney PA-C [address] [place] [address] 06/04/2024 8:20 AM EDT Office Visit Family Practice [facility] [place] [address] [facility] [place] [address] Jovanni Hammonds, [address] [facility] [place] [address] Scheduled Procedures Name Priority Associated Diagnoses Date/Ti me LAPAROSCOPIC PARTIAL COLECTO MY WITH COLOPROCTOSTOMY Diverticulitis of sigmoid colon 03/06/2024 3:56 PM EDT COLONOSCOPY FLEXIBLE PROXIMA L DIAGNOSTIC Recall History of diverticulitis History of colon polyps ESOPHAGOGASTRODUODENOSCOPY ( EGD), FLEXIBLE, TRANSORAL, DIAGNOSTIC Recall Chronic diarrhea Abdominal pain, unspecified abdominal location Health Maintenance Due Date Last Done Comments Cologuard 1999 Fecal Occult Blood Test 1999 Sigmoidoscopy 1999 COVID-19 Vaccine ( season) 2023 05/24/2023, 11/29/2021, 05/31/2021, Additional history exists Depression Monitoring 10/03/2023 10/03/2022 Albumin/Creatinine Ratio 03/01/20242 023, 02/28/2022, 04/21/2021, Additional history exists B-12 03/01/2024 03/01/2023, 08/0 10/2021, 08/26/2021, Additional history exists Mammogram 03/22/2024 03/22/2023, 03/06, 03/17/2022, Additional history exists Influenza Vaccine (FLU shot) (#1) 2024 05/09/2023, 04/18/2023, 06/07/2022, Additional history exists HbA1c 07/18/2024 01/17/2024, 02/2024, 03/01/2023, Additional history exists Diabetic Foot Exam 09/19/2024 09/19/2023, 0 09/12/2022, 09/07/2021, Additional history exists Diabetic Eye Exam 11/04/2024 11/05/2023, , 10/31/2022, Additional history exists GFR 01/20/2025 01/21/2024, 09/06, 09/12/2023, Additional history exists DXA Scan 10/25/2027 10/24/2022, 10/05, 08/23/2016, Additional history exists Lipid Panel 03/01/2028 03/01/2023, 02/2022, 01/04/2021, Additional history exists Colonoscopy 12/02/2028 12/03/2023, 11/05, 07/11/2018, Additional history exists Colorectal Cancer Screening 12/02/2028 DTaP,Tdap,and Td Vaccines (3 - Td or Tdap) 12/03/2028 12/03/2018, 10/12/2008, 07/19/1998 Hepatitis B Vaccine Completed 10/05/2005, 04/05/2005, 03/07/2005 Zoster Vaccines Completed 03/18/2020, 01/04, 11/30/2014 Pneumococcal Vaccine: 65+ Years Completed 07/20/2020, 03/02/2015, 03/03/2005, Additional history exists RETIRED - COLONOSCOPY-EVERY 5 YRS AGES 18-100 Discontinued 12/03/2023, 12/03/2023, 07/11/2018, Additional history exists HPV (Gardasil) Vaccine Aged Out No lo nger eligible based on patient's age to complete this topic MENINGOCOCCAL (MENACTRA/MENVEO) Aged Out No longer eligible based on patient's age to complete this topic documented as of this encounter Medical Devices Implanted Type Area Hydrate Control Tender Device Identifier Shelf Expiration Date Model / Serial / Lot Lens Intraoc 21.0 - [id number] - [id number] Implanted:Qty: 1 on 03/06/2017 by Marcell Cueva MD at OR [facility] Right: Eye [employer] 10/03/2021 [id number] / [id number] / Lens Intraoc 21.0 - [id number] - [id number] Implanted:Qty: 1 on 03/13/2017 by Marcell Cueva MD at OR [facility] Left: Eye [employer] 10/03/2021 [id number] / [id number] / [id number] documented as of this encounter Visit Diagnoses Diagnosis Diverticulitis of sigmoid colon- Primary Diverticulitis of colon (without mention of hemorrhage) Diverticulitis of sigmoid colon Diverticulitis of colon (without mention of hemorrhage) Chronic rhinitis Diverticulitis of sigmoid colon Diverticulitis of colon (without mention of hemorrhage) documented in this encounter Additional Health Concerns Infection Onset Date Last Indicated Resolved Time Campylobacter 04/25/2022 11/02/2022 Norovirus 11/02/2022 11/02/2022 Rotavirus 11/02/2022 11/02/2022 documented as of this encounter Advance Directives Documents on File Type Date Recorded Patient Traffic Control Specialist Expl anation Advance Directives and Livin g Will 09/18/2017 LIVING WILL Power of Qi Specialist 09/18/2017 POWER OF A TTORNEY * Full Code (Latest Code Status on File) Date Activated Date Inactivated Comments 03/13/2017 6:30 AM 03/13/2017 12:50 PM This order re flects the patients wishes and were consensually agreed upon. * Full Code Date Activated Date Inactivated Comments 03/06/2017 9:44 AM 03/06/2017 3:45 PM This order ref lects the patients wishes and were consensually agreed upon. Care Teams Chicken Handler Relationship Specialty Start Date End Date Jovanni Hammonds DO [address] [place] [address] PCP - General Family Medicine 02/28/17 documented as of this encounter
--- OUTSIDE RECORDS SUMMARY | 2024-03-03 18:32 | External Medical Summary ---
Author Name Unknown Address Unknown Organization [id number]:[facility] - [address] [place] [id number] Laboratory Report Ordering Provider Test Date Status TENA DONATO 02/12/2024 08:18:30 Final Observation Date Value Abnormality Reference (Units ) Status ABO 02/12/2024 08:18:30 A Final RH 02/12/2024 08:18:30 Positive Final RED BLOOD CELL ANTIBODY SCREEN 02/12/2024 08:18:30 Negative Final SPECIMEN EXPIRATION DATE 02/12/2024 08:18:30 02/22/2024 23:59 Final Performing Location [facility] - [address] [place] [id number]
--- OUTSIDE RECORDS SUMMARY | 2024-03-03 18:32 | External Medical Summary | Summary of Care ---
Author Name Unknown Organization [facility] Address [address] [place] [address] Phone [phone] Care Team Providers Care Tank Truck Milk Receiver Name Role Phone BestchavezjacLeander Leonela GUNN Primary Care Provider [phone] Reason for Visit * Reason Onset Date Comments Surgery 02/18/2024 Encounter Details Date Type Department Care Team (Late st Contact Info) Description 02/18/2024 Telephone General Surgery, [place] [address] [place] [address] Nahun Sarabia MD [address] [place] [address] Surgery Allergies Active Allergy Reactions Criticality Noted Date Comments Carisoprodol 03/08/2022 Pollen 05/15/2017 Fall and winter allergies Atorvastatin Calcium 06/10/2019 Myalgias Morphine Sulfate 04/09/2002 hives following hospitalization recieved MS Sulfa Antibiotics Hives 06/14/2000 documented as of this encounter (statuses as of 02/18/2024) Medications Medication Sig Dispensed Refills Start Date End Date Status ASPIRIN EC 81 MG PO TBECIndications:Mixed dyslipidemia,DM type 2, goal A1c below 7 1 TABLET DAILY 100 0 04/05/2007 Active oxyCODONE HCl 5 MG Oral Tablet (Oxy IR)Indications:Sciati ca, unspecified laterality Take 1 Tablet by mouth daily as needed for Pain, Moderate or Pain, Severe. Take 1 Tab by mouth daily as needed for Pain. 60 Tablet 10/03/2022 Active Vitamin D3 50 MCG (2000 UT) Oral Capsule Take 1 Capsule by mouth in the morning. 90 Capsule 3 03/20/2023 Active Gemfibrozil 600 MG Oral Tablet (Lopid)Indications:Mi xed dyslipidemia TAKE 1 TABLET BY MOUTH TWO TIMES DAILY BEFORE MEALS 180 Tablet 3 03/20/2023 Active Ibuprofen 800 MG Oral Tablet (Motrin)Indications:S ciatica, unspecified laterality Take 1 Tablet by mouth every 8 hours as needed for Pain, Moderate. with food for pain 60 Tablet 5 03/23/2023 Active Albuterol Sulfate HFA 108 (90 Base) MCG/ACT Inhalation Aerosol SolutionIndications:A cute bronchitis, antibiotics not indicated Inhale 2 Puffs by mouth in the morning and 2 Puffs at noon and 2 Puffs in the evening and 2 Puffs before bedtime. 18 g 5 06/11/2023 Active Tresiba FlexTouch 200 UNIT/ML Subcutaneous Solution Pen-injector INJECT 50 UNITS UNDER THE SKIN ONCE DAILY 90 mL 3 07/16/2023 07/15/2024 Active NovoLOG FlexPen 100 UNIT/ML Subcutaneous Solution Pen-injectorIndicatio ns:Type 2 diabetes mellitus with hemoglobin A1c goal of less than 7.0% ([facility]),DM type 2 causing neurological disease ([facility]) INJECT 1 unit per 10 carbs under the skin with meals. 30 mL 3 07/16/2023 Active BD Pen Needle Mini U/F 31G X 5 MM (Insulin Pen Needle)Indications:Ty pe 2 diabetes mellitus with hemoglobin A1c goal of less than 7.0% ([facility]) Use 3 to 4 times daily 200 Each 5 08/10/2023 Active OneTouch Ultra In Vitro Strip (Glucose Blood)Indications:Typ e 2 diabetes mellitus with hemoglobin A1c goal of less than 7.0% ([facility]) Test blood sugars 4 times daily 100 Strip 5 08/10/2023 Active metFORMIN HCl ER 500 MG Oral Tablet Extended Release 24 Hour (Glucophage XR)Indications:Type 2 diabetes mellitus with diabetic peripheral angiopathy without gangrene, unspecified whether prison insulin use (HCC) TAKE 2 TABLETS BY MOUTH EVERY MORNING AND TAKE 2 TABLETS BY MOUTH AT BEDTIME 360 Tablet 1 09/11/2023 Active Omeprazole 20 MG Oral Capsule Delayed Release (PriLOSEC)Indications :Gastroesophageal reflux disease with esophagitis without hemorrhage TAKE 1 CAPSULE BY MOUTH EVERY DAY 1 HOUR BEFORE THE FIRST MEAL OF THE DAY 90 Capsule 1 09/11/2023 Active Fluticasone Propionate 50 MCG/ACT Nasal Suspension (Flonase)Indications: Chronic rhinitis SPRAY 2 SPRAYS INTO EACH NOSTRIL ONE TIME DAILY 48 mL 1 09/11/2023 Active Ondansetron HCl 4 MG Oral Tablet Take 1 Tablet by mouth every 6 hours as needed for Nausea. 30 Tablet 09/12/2023 Active Citalopram Hydrobromide 10 MG Oral Tablet (CeleXA)Indications:M ajor depressive disorder, single episode, moderate (HCC) Take 1 Tablet by mouth in the morning. 90 Tablet 3 11/06/2023 Active Gabapentin 400 MG Oral Capsule (Neurontin)Indication s:Diabetic polyneuropathy associated with type 2 diabetes mellitus (HCC) Take 1 Capsule by mouth in the morning and 1 Capsule at noon and 1 Capsule before bedtime. 270 Capsule 3 12/24/2023 Active Bisacodyl 5 MG Oral Tablet Delayed Release (Dulcolax)Indications :Diverticulitis of sigmoid colon Take 4 tablets by mouth at noon day before surgery 4 Tablet 01/18/2024 Active metroNIDAZOLE 500 MG Oral Tablet (Flagyl)Indications:D iverticulitis of sigmoid colon Take 2 tabs by mouth on the day before surgery at 4, 5 and 11 PM. 6 Tablet 01/18/2024 Active Ondansetron 8 MG Oral Tablet Disintegrating (Zofran)Indications:D iverticulitis of sigmoid colon Dissolve 1 tablet on tongue at 11 a.m. the day before surgery and every 8 hours as needed for nausea related to bowel prep. 3 Tablet 01/18/2024 Active Polyethylene Glycol 3350 17 GM/SCOOP Oral Powder (MiraLax)Indications: Diverticulitis of sigmoid colon Mix entire bottle with 2 liters of clear liquid and take by mouth between 1 PM and 3 PM the day before surgery 238 g 01/18/2024 Active documented as of this encounter (statuses as of 02/18/2024) Active Problems Problem Noted Date Diagnosed Date [...] as of this encounter (statuses as of 02/18/2024) Resolved Problems Problem Noted Date Diagnosed Date [...] as of this encounter (statuses as of 02/18/2024) Immunizations Name Administration Dates Next Due COVID-19 [...] 8:08 AM EDT Sexual Orientation Straight 12/03/2018 8: 08 AM EDT Job Start Date Occupation Industry Not on file Not on file Not on file documented as of this encounter Miscellaneous Notes * Telephone Encounter - Ebright, Jesisca Longer, 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 documented in this encounter Plan of Treatment Upcoming Encounters Date Type Department Care Team (Latest Contact Info) Description 03/05/2024 1:30 PM EDT Office Visit General Surgery, [place] [address], [place] [phone] Kiki Rooney PA-C [address], [place] [phone] 03/06/2024 11:12 AM EDT Hospital Encounter [place] [facility] OPERATING ROOM [facility] [address] [place] [phone] Nahun Sarabia MD [address] [place], [place] [phone] 03/06/2024 11:12 AM EDT - 03/06/2024 2:54 PM EDT Surgery [place] [facility], OPERATING ROOM [facility] [address] [place] [phone] Nahun Sarabia MD [address] [place], [place] [id number] LAPAROSCOPIC PARTIAL COLECTOMY WITH COLOPROCTOSTOMY 03/18/2024 9:30 AM EDT Nurse Only Ancillary [facility] Heather Bolden [address] [facility] [place] [id number] Kimi, Nurse Annual Wellness [place] [address] [place] [id number] 06/04/2024 8:20 AM EDT Office Visit Family Practice [facility] Heather Bolden [address] [place] [id number] Leander Abrams, DO [address] [place] [address] Scheduled Procedures Name Priority Associated Diagnoses Date/Ti me LAPAROSCOPIC PARTIAL COLECTO MY WITH COLOPROCTOSTOMY Diverticulitis of sigmoid colon 03/06/2024 11:12 AM EDT COLONOSCOPY FLEXIBLE PROXIMA L DIAGNOSTIC Recall History of diverticulitis History of colon polyps ESOPHAGOGASTRODUODENOSCOPY ( EGD), FLEXIBLE, TRANSORAL, DIAGNOSTIC Recall Chronic diarrhea Abdominal pain, unspecified abdominal location Health Maintenance Due Date Last Done Comments Cologuard 1999 Fecal Occult Blood Test 1999 Sigmoidoscopy 1999 COVID-19 Vaccine ( season) 2023 05/24/2023, 11/29/2021, 05/31/2021, Additional history exists Depression Monitoring 10/03/2023 10/03/2022 Albumin/Creatinine Ratio 03/01/2024 023, 02/28/2022, 04/21/2021, Additional history exists B-12 03/01/2024 03/01/2023, 08/0 10/2021, 08/26/2021, Additional history exists Mammogram 03/22/2024 03/22/2023, 03/06, 03/17/2022, Additional history exists Influenza Vaccine (FLU shot) (#1) 2024 05/09/2023, 04/18/2023, 06/07/2022, Additional history exists HbA1c 07/18/2024 01/17/2024, 02/0 02/2024, 03/01/2023, Additional history exists Diabetic Foot [...] this encounter Medical Devices Implanted Type Area Exhibition Specialist Device Identifier Shelf Expiration Date Model / Serial / Lot Lens Intraoc 21.0 - [id number] - [id number] Implanted:Qty: 1 on 03/06/2017 by Marcell Cueva MD at OR [facility] Right: Eye [employer] 10/03/2021 [id number] / [id number] / Lens Intraoc 21.0 - [id number] - [id number] Implanted:Qty: 1 on 03/13/2017 by Marcell Cueva MD at OR [facility] Left: Eye [employer] 10/03/2021 [id number] / [id number] / [id number] documented as of this encounter Additional Health Concerns Infection Onset Date Last Indicated Resolved Time Campylobacter 04/25/2022 11/02/2022 Norovirus 11/02/2022 11/02/2022 Rotavirus 11/02/2022 11/02/2022 documented as of this encounter Advance Directives Documents on File Type Date Recorded Patient Forest Fire Prevention Specialist Expl anation Advance Directives and Livin g Will 09/18/2017 LIVING WILL Power of Cable Rigger 09/18/2017 POWER OF A TTORNEY * Full [...] and were consensually agreed upon. Care Teams Tank Truck Milk Receiver Relationship Specialty Start Date End Date Leander Abrams DO [address] [place] [address] PCP - General Family Medicine 02/28/17 documented as of this encounter
--- OUTSIDE RECORDS SUMMARY | 2024-03-03 18:32 | External Medical Summary | Summary of Care ---
Author Name Unknown Organization [facility] Address [address] [place] [address] Phone [phone] Care Team Providers Care Bridge Toll Collector Name Role Phone Leander Abrams DO Primary Care Provider [phone] Reason for Visit * Reason Comments Outpatient Testing Encounter Details Date Type Department Care Team (Late st Contact Info) Description 02/12/2024 8:20 AM EDT Laboratory [facility] [place] [address] [place] [phone] [place], [facility] [address] [place] [address] Diverticulitis of sigmoid colon Allergies Active Allergy Reactions Criticality Noted Date Comments Carisoprodol 03/08/2022 Pollen 05/15/2017 Fall and winter allergies Atorvastatin Calcium 06/10/2019 Myalgias Morphine Sulfate 04/09/2002 hives following hospitalization recieved MS Sulfa Antibiotics Hives 06/14/2000 documented as of this encounter (statuses as of 02/12/2024) Medications Medication Sig Dispensed Refills Start Date [...] hemoglobin A1c goal of less than 7.0% ([facility]),DM type 2 causing neurological disease ([facility]) INJECT 1 unit per 10 carbs under the skin with meals. 30 mL 3 07/16/2023 Active BD Pen Needle Mini U/F 31G X 5 MM (Insulin Pen Needle)Indications:Ty pe 2 diabetes mellitus with hemoglobin A1c goal of less than 7.0% ([facility]) Use 3 to 4 times daily 200 Each 5 08/10/2023 Active OneTouch Ultra In Vitro Strip (Glucose Blood)Indications:Typ e 2 diabetes mellitus with hemoglobin A1c goal of less than 7.0% ([facility]) Test blood sugars 4 times daily 100 Strip 5 08/10/2023 Active metFORMIN HCl ER 500 MG Oral Tablet Extended Release 24 Hour (Glucophage XR)Indications:Type 2 diabetes mellitus with diabetic peripheral angiopathy without gangrene, unspecified whether fpc insulin use (HCC) TAKE 2 TABLETS BY [...] as of this encounter (statuses as of 02/12/2024) Active Problems Problem Noted Date Diagnosed Date [...] as of this encounter (statuses as of 02/12/2024) Resolved Problems Problem Noted Date Diagnosed Date [...] as of this encounter (statuses as of 02/12/2024) Immunizations Name Administration Dates Next Due COVID-19 [...] on file documented as of this encounter Plan of Treatment Upcoming Encounters Date Type Department Care Team (Latest Contact Info) Description 02/19/2024 7:45 AM EDT Hospital Encounter OR C, OPERATING ROOM [facility] [place], [place] [place] [address] [place] [phone] Nahun Sarabia MD [address] [place], [place] [phone] 02/19/2024 7:45 AM EDT - 02/19/2024 11:27 AM EDT Surgery OR [facility], OPERATING ROOM [facility], [place] [place] [address] [place] [address] Nahun Sarabia MD [address], [place] [phone] LAPAROSCOPIC PARTIAL COLECTOMY WITH COLOPROCTOSTOMY 02/26/2024 10:15 AM EDT Scheduled Telephone General Surgery, [place] [address], [place] [phone] Colorectal, Nurse Follow Up Phone Call Schedule [address] [place] [address] 03/05/2024 1:30 PM EDT Office Visit General Surgery, [place] [address], [place] [phone] Kiki Rooney PA-C [address] [place] [address] 03/18/2024 9:30 AM EDT Nurse Only Ancillary [facility] [place] [address] [place] [address] [place], Nurse Annual Wellness [facility] [address] [place] [id number] 06/04/2024 8:20 AM EDT Office Visit Family Practice [facility] Kimi [place] [address] [place] [address] Leander Abrams, DO [address] [facility] [place] [address] Pending Results Name Type Priority Associated Diagnoses Date /Time TYPE AND SCREEN Lab Routine Diverticulitis of sigmoid colon 02/12/2024 8:18 AM EDT Scheduled Procedures Name Priority Associated Diagnoses Date/Ti me LAPAROSCOPIC PARTIAL COLECTO MY WITH COLOPROCTOSTOMY Diverticulitis of sigmoid colon 02/19/2024 7:45 AM EDT COLONOSCOPY FLEXIBLE PROXIMA L DIAGNOSTIC [...] this encounter Medical Devices Implanted Type Area Beamer Helper Device Identifier Shelf Expiration Date Model / Serial / Lot Lens Intraoc 21.0 - [id number] - [id number] Implanted:Qty: 1 on 03/06/2017 by Marcell Cueva MD at OR [facility] Right: Eye [employer] 10/03/2021 [id number] / [id number] / Lens Intraoc 21.0 - [id number] - [id number] Implanted:Qty: 1 on 03/13/2017 by Marcell Cueva MD at OR [facility] Left: Eye [employer] 10/03/2021 [id number] / [id number] / [id number] documented as of this encounter Visit Diagnoses [...] Documents on File Type Date Recorded Patient Environmental Engineering Assistant Expl anation Advance Directives and Livin g Will 09/18/2017 LIVING WILL Power of Supervisor Chemical 09/18/2017 POWER OF A TTORNEY * Full [...] and were consensually agreed upon. Care Teams Bridge Toll Collector Relationship Specialty Start Date End Date Leander Abrams DO [address] [place] [address] PCP - General Family Medicine 02/28/17 documented as of this encounter
[2024-03-03] MEDS: INSULIN ASPART PER UNIT CHARGE SC SCH (20:25)
[2024-03-03] MEDS: CHOLECALCIFEROL 25 MCG (1000 UNITS) TAB PO SCH (20:37)
[2024-03-03] MEDS: CLOPIDOGREL BISULFATE 75 MG TAB PO SCH (20:37)
[2024-03-03] MEDS: GABAPENTIN 400 MG CAP PO SCH (20:37)
[2024-03-03] MEDS: PANTOprazole 40 MG TAB PO SCH (20:37)
[2024-03-03] MEDS: gemfibroziL 600 MG TAB PO SCH (20:37)
[2024-03-03] MEDS: ASPIRIN 81 MG ECTAB PO SCH (20:37)
[2024-03-03] MEDS: LANTUS PER UNIT CHARGE SQ SCH (20:38)
[2024-03-03] MEDS: cephALEXin 500 MG CAP PO SCH (21:27)
--- NOTE | 2024-03-03 21:57 | Electrocardiogram Report ---
Test Reason : Blood Pressure : / mmHG Vent. Rate : 066 BPM Atrial Rate : 066 BPM P-R Int : 162 ms QRS Dur : 128 ms QT Int : 456 ms P-R-T Axes : 074 021 110 degrees QTc Int : 478 ms Normal sinus rhythm Possible Left atrial enlargement Left bundle branch block Abnormal ECG When compared with ECG of 23-FEB-2020 09:38, No significant change was found Confirmed by Ryan Hernández ([id number]) on 03/03/2024 9:56:52 PM Referred By: Confirmed By:Ryan Hernández
--- NOTE | 2024-03-04 07:13 | Electrocardiogram Report ---
Test Reason : Blood Pressure : / mmHG Vent. Rate : 067 BPM Atrial Rate : 067 BPM P-R Int : 162 ms QRS Dur : 130 ms QT Int : 468 ms P-R-T Axes : 079 047 088 degrees QTc Int : 494 ms Normal sinus rhythm with sinus arrhythmia Left bundle branch block Abnormal ECG When compared with ECG of 03-MAR-2024 11:33, No significant change was found Confirmed by Ryan Hernández ([id number]) on 03/04/2024 7:13:15 AM Referred By: REFERRED SELF Confirmed By:Ryan Hernández
[2024-03-04 07:45] LABS: Basophils # (auto) 0.04 K/uL (0.00-0.20); Basophils % (auto) 0.7 %; Eosinophils # (auto) 0.07 K/uL (0.00-0.50); Eosinophils % (auto) 1.2 %; Hematocrit (blood only) 36.2 % (37.0-47.0); Hemoglobin 12.6 g/dl (12.0-16.0); Immature Granulocytes # (auto) 0.01 K/uL (0.01-0.20); Immature Granulocytes % (auto) 0.2 %; Lymphocytes # (auto) 1.99 K/uL (1.20-3.40); Lymphocytes % (auto) 33.7 %; Mean Corpuscular Hemoglobin 28.8 pg (25.0-34.0); Mean Corpuscular Hgb Conc 34.8 g/dL (32.0-36.0); Mean Corpuscular Volume 82.8 fL (80.0-100.0); Mean Platelet Volume 10.8 fL (9.4-12.4); Monocytes # (auto) 0.47 K/uL (0.11-0.59); Neutrophils # (auto) 3.32 K/uL (1.40-6.50); Neutrophils % (auto) 56.2 %; Platelet Count 249 K/uL (130-400); RDW Coefficient of Variation 12.9 % (11.5-14.5); RDW Standard Deviation 39.3 fL (36.4-46.3); Red Blood Count 4.37 M/uL (4.20-5.40)
[2024-03-04 08:19] LABS: BUN Creatinine Ratio 25.5 (10-20); Calcium 9.2 mg/dl (8.6-10.3); Chol HDL Ratio 4.2 (0-5); Creatinine Clr Calc Pharmacy 91.8 ml/min; Est GFR (African American) 113.7 ml/min; Est GFR (Non-African American) 98.1 ml/min; Potassium 4.1 mmol/L (3.5-5.1)
[2024-03-04] MEDS: CITALOPRAM 20 MG TAB PO SCH (08:23)
[2024-03-04] MEDS: ENOXAPARIN INJ 40 MG/0.4 ML SYR SQ SCH (08:23)
[2024-03-04 08:28] LABS: Estimated Average Glucose 163 mg/dl; Hemoglobin A1C 7.3 % (4.5-5.6)
--- NOTE | 2024-03-04 09:34 | XCELERA ---
[id number] \\[id number]
--- NOTE | 2024-03-04 09:35 | Cardiology Consultation ---
Date of Consultation March 04, 2024 Assessment & Plan (1) Bradycardia: (2) Stroke: (3) LBBB (left bundle branch block): Plan ASSESSMENT/PLAN: 1. Bradycardia: Sinus bradycardia. Outside ECG which reported Mobitz 2 appears consistent with sinus rhythm with blocked PACs rather than high grade AV block. There is no obvious indication for pacemaker. She denies any symptoms attributable bradycardia and her heart rate is reasonable today. Recommend 30- day outpatient event monitor. 2. Stroke: As per neurology. With 30-day event monitor, can monitor for A- fib/flutter which would exchange administrator. Antiplatelet therapy as per neurology. 3. Left bundle branch block: Chronic issue. 4. Hypertension: Blood pressure intermittently normotensive or mildly hypertensive. As per primary service and neurology. 5. Disposition: Will arrange outpatient follow-up with her primary manager of international, Dr. Che near the completion of her 30-day event monitor. Please call with any further questions or concerns. Patient care communicated with primary hospitalist, Dr. Barr. Today's visit was 55 minutes in duration, which includes [id number] time, counseling patient, coordinating care, reviewing records, reviewing outside records, and completing documentation. Thank you for allowing me to participate in the care of your patient. Please call for any other questions or concerns. Sincerely, Yordan Hernández M.D. History of Present Illness Reason for Consultation: bradycardia, stroke Requesting Physician: Nati White PA-C Attending Physician: Ora Barr MD History of Present Illness Mrs. Sommers is a very pleasant 68-year-old female with history significant for stroke/TIA, dyslipidemia, type 2 diabetes, diverticulosis, and LBBB. Her primary manager of international is Dr. Che. 1 week ago, she had what she describes as a TIA. She did not seek medical attention however. She apparently had left-sided facial droop and left leg weakness. Approximately 4 days ago, police picked her up as she was driving down the wrong side of the road. She went to ER at [place]. She was told that she might need a pacemaker. She was unable to undergo MRI there. She left [facility] and was seen and admitted here on 03/03/2024. While here, she underwent MRI of the brain which reported right basal ganglia restricted diffusion focus, reported as compatible with acute infarct by radiology. She brought with her ECGs from [facility] which were personally reviewed. She denies syncope, near syncope, chest pain, shortness of breath, palpitations, or edema. She feels as though she is back to baseline from a neurologic standpoint. Her agrees that she has no facial drooping at this time. When she left [facility], she did begin dual antiplatelet therapy, both aspirin and Plavix, previously only on aspirin. She was scheduled for colon resection later this week due to diverticulitis issues in the past. It has since been canceled. Review of systems: As above. Review of systems otherwise negative/unremarkable. Family history: Sibling with peripheral arterial disease. Mother with A-fib. Social history: She quit smoking years ago after 20 to 30 pack years. No significant alcohol. No drug abuse. Lives at home with her . Her accompanied her today. Allergies Allergy/AdvReac Type Severity Reaction Status Date / Time carisoprodol [From [facility]] Allergy Intermediate CONFUSED/COULD Verified 03/03/24 13:45 NOT MOVE morphine Allergy Intermediate SWELLING, Verified 03/03/24 13:45 HIVES [id number] Reductase Allergy Intermediate Hives Verified 03/03/24 13:45 Inhibitor Sulfa (Sulfonamide Allergy Intermediate Hives Verified 03/03/24 13:45 Antibiotics) Home Medications Medication Instructions Recorded Confirmed Type aspirin 81 mg tablet,delayed 81 mg PO PM 08/15/19 03/03/24 History release (Aspir-) gemfibrozil 600 mg tablet 600 mg PO BID 08/15/19 03/03/24 History insulin aspart U-100 100 unit/mL 1 unit subcut BID 08/15/19 03/03/24 History (3 mL) subcutaneous pen (Novolog FlexPen U-100 Insulin aspart) insulin degludec 200 unit/mL (3 50 unit subcut QAM 08/15/19 03/03/24 History mL) subcutaneous pen (Tresiba FlexTouch U-200 insulin) citalopram 10 mg tablet 10 mg PO QAM 09/30/19 03/03/24 History albuterol sulfate 90 mcg/actuation 2 puff inhalation QID PRN SHORT OF 02/16/20 03/03/24 History aerosol inhaler (Ventolin HFA) BREATH omeprazole 20 mg tablet,delayed 20 mg PO PM 02/16/20 03/03/24 History release gabapentin 400 mg capsule 400 mg PO TID 02/08/24 03/03/24 History cephalexin 500 mg capsule 500 mg PO Q8H 03/03/24 03/03/24 History cholecalciferol (vitamin D3) 50 2,000 unit PO PM 03/03/24 03/03/24 History mcg (2,000 unit) capsule clopidogrel 75 mg tablet 75 mg PO PM 03/03/24 03/03/24 History metformin 500 mg tablet,extended 1,000 mg PO BID 03/03/24 03/03/24 History release 24 hr Problem List Bradycardia Diabetes mellitus, type 2 Stroke (Acute) LBBB (left bundle branch block) Hypercholesterolemia Diverticulosis (Acute 07/17/13) Diabetic peripheral neuropathy associated with type 2 diabetes mellitus Patient History Medical History 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 History of diabetic ulcer of foot Transient ischemic attack (TIA) few years ago, no deficits LBBB (left bundle branch block) Seasonal allergies Diverticular disease GERD (gastroesophageal reflux disease) Anxiety Peripheral neuropathy Hyperlipidemia Surgical History History of cholecystectomy Family history of reaction to anesthesia MOTHER/SISTER PONV Hx of cataract extraction BILAT History of hysterectomy Hx of foot surgery LEFT HAMMER TOE FIXED THEN INFECTED WITH AMPUTATION Hx of rotator cuff surgery LEFT History of colonoscopy Family History Sister Family history of diabetes mellitus Brother Family history of diabetes mellitus Mother Family history of diabetes mellitus Father Family history of diabetes mellitus Social History Smoking Status: Former smoker Tobacco Type: Cigarettes Do You Dip or Chew Tobacco: No; Hx Alcohol Use: No Hx Substance Use: No Preferred Language: German Communication Ability: Effective Telephone Information Supervisor Required: No Beliefs That Will Affect Care: None Current Living Situation: Spouse Feels Safe at Home: Yes Safety Concerns: Feels Safe At This Time Assistive Devices: Denture - Upper and Glasses Assistive Devices Comment: partial - upper Physical Exam Physical Exam: Gen.: No acute distress. Alert. HEENT: Anicteric sclera. Possible very mild left-sided facial droop, specifically involving the mouth. Neck: No JVD. No bruits. Normal carotid upstrokes bilaterally. Cardiac: No ventricular heave. Regular. Normal S1-S2. No murmurs, rubs, or gallops. Pulmonary: Clear to auscultation bilaterally without wheezes, rales, or rhonchi. Abdomen: Soft, nontender, nondistended, with normoactive bowel sounds. No bruits noted. Extremities: 2+ radial pulses bilaterally. 2+ posterior tibialis pulses bilaterally. No edema or cyanosis. Results & Data Vital Signs (Past 12 Hours) Vital Signs Temp Pulse Pulse Resp BP Pulse Ox O2 Del Method 03/04/24 07:39 36.6 C 60 18 130/64 97 Room Air 03/04/24 02:33 36.6 C 67 17 129/69 100 Room Air 03/03/24 23:18 36.7 C 67 18 129/76 100 Room Air 03/03/24 21:57 64 Laboratory Results Laboratory Results - last 24 hr 03/03/24 03/03/24 03/03/24 11:47 14:25 18:46 WBC Cancelled 7.78 RBC Cancelled 4.34 Hgb Cancelled 12.1 Hct Cancelled 35.9 L MCV Cancelled 82.7 MCH Cancelled 27.9 MCHC Cancelled 33.7 RDW Std Deviation Cancelled 39.0 RDW Coeff of Cameron Cancelled 13.0 Plt Count Cancelled 233 MPV Cancelled 11.2 Immature Gran % (Auto) Neut % (Auto) Lymph % (Auto) Gage % (Auto) Eos % (Auto) Baso % (Auto) Neut # (Auto) Lymph # (Auto) Gage # (Auto) Eos # (Auto) Baso # (Auto) Immature Gran # (Auto) Absolute Nucleated RBC Cancelled Nucleated RBC % (auto) Cancelled Platelet Estimate Cancelled PT Cancelled 10.9 INR Cancelled 1.0 APTT Cancelled 29 PTT Ratio Cancelled 1.1 Sodium 131 L Potassium 4.5 Chloride 100 Carbon Dioxide 24 Anion Gap 7 BUN 11 Creatinine 0.56 L Est Cr Clr Drug Dosing 88.6 Est GFR ( Amer) 110.3 Est GFR (Non-Af Amer) 95.1 BUN/Creatinine Ratio 19.6 Glucose 225 H POC Glucose 110 H Estimat Average Glucose Hemoglobin A1c Calcium 9.7 Magnesium 1.7 Total Bilirubin 0.4 AST 17 ALT 13 Alkaline Phosphatase 93 Total Protein 7.2 Albumin 4.3 Globulin 2.9 Albumin/Globulin Ratio 1.5 Triglycerides Cholesterol LDL Cholesterol, Calc VLDL Cholesterol, Calc HDL Cholesterol Cholesterol/HDL Ratio 03/03/24 03/04/24 03/04/24 21:19 07:13 07:38 WBC 5.90 RBC 4.37 Hgb 12.6 Hct 36.2 L MCV 82.8 MCH 28.8 MCHC 34.8 RDW Std Deviation 39.3 RDW Coeff of Cameron 12.9 Plt Count 249 MPV 10.8 Immature Gran % (Auto) 0.2 Neut % (Auto) 56.2 Lymph % (Auto) 33.7 Gage % (Auto) 8.0 Eos % (Auto) 1.2 Baso % (Auto) 0.7 Neut # (Auto) 3.32 Lymph # (Auto) 1.99 Gage # (Auto) 0.47 Eos # (Auto) 0.07 Baso # (Auto) 0.04 Immature Gran # (Auto) 0.01 Absolute Nucleated RBC Nucleated RBC % (auto) Platelet Estimate PT INR APTT PTT Ratio Sodium 136 Potassium 4.1 Chloride 104 Carbon Dioxide 24 Anion Gap 8 BUN 13 Creatinine 0.51 L Est Cr Clr Drug Dosing 91.8 Est GFR ( Amer) 113.7 Est GFR (Non-Af Amer) 98.1 BUN/Creatinine Ratio 25.5 H Glucose 63 L POC Glucose 103 H 67 L* Estimat Average Glucose 163 Hemoglobin A1c 7.3 H Calcium 9.2 Magnesium Total Bilirubin AST ALT Alkaline Phosphatase Total Protein Albumin Globulin Albumin/Globulin Ratio Triglycerides 111 Cholesterol 101 LDL Cholesterol, Calc 55 VLDL Cholesterol, Calc 22 HDL Cholesterol 24 Cholesterol/HDL Ratio 4.2 03/04/24 07:57 WBC RBC Hgb Hct MCV MCH MCHC RDW Std Deviation RDW Coeff of Cameron Plt Count MPV Immature Gran % (Auto) Neut % (Auto) Lymph % (Auto) Gage % (Auto) Eos % (Auto) Baso % (Auto) Neut # (Auto) Lymph # (Auto) Gage # (Auto) Eos # (Auto) Baso # (Auto) Immature Gran # (Auto) Absolute Nucleated RBC Nucleated RBC % (auto) Platelet Estimate PT INR APTT PTT Ratio Sodium Potassium Chloride Carbon Dioxide Anion Gap BUN Creatinine Est Cr Clr Drug Dosing Est GFR ( Amer) Est GFR (Non-Af Amer) BUN/Creatinine Ratio Glucose POC Glucose 79 Estimat Average Glucose Hemoglobin A1c Calcium Magnesium Total Bilirubin AST ALT Alkaline Phosphatase Total Protein Albumin Globulin Albumin/Globulin Ratio Triglycerides Cholesterol LDL Cholesterol, Calc VLDL Cholesterol, Calc HDL Cholesterol Cholesterol/HDL Ratio Diagnostic Findings ECHO 03/04/24: 1. Normal left ventricular size and systolic function. EF 60-65%. No regional wall motion abnormalities. No left ventricular hypertrophy. 2. No significant valvular abnormalities. 3. No right to left interatrial shunt noted following agitated saline administration. 4. Normal estimated right ventricular systolic pressure. 5. No significant change from prior study on 09/03/2019. Telemetry personally reviewed: Sinus bradycardia in the 40s yesterday afternoon/evening. Since, sinus rhythm with heart rates in the 50s to 60s. Outside ECGs personally reviewed: ECG 02/29/2024 at [facility]: Sinus rhythm 61 bpm. LBBB. ECG 02/29/2024 at [facility]: Sinus rhythm with blocked PACs 58 bpm. LBBB. Neurology consultation reviewed. History and physical part reviewed. [facility] ECGs personally reviewed: ECG 03/03/2024 11:33 AM: Sinus rhythm 66 bpm. LBBB. ECG 03/04/2024 5:47 AM: Sinus rhythm 67 bpm. LBBB. MRI brain report reviewed as noted above in HPI. Medications Administered Current Inpatient Medications Acetaminophen (Acetaminophen 325 Mg Tab) 650 mg PO Q4H PRN PRN Reason: Pain or Fever Stop: 04/02/24 16:01 Albuterol (Albuterol Hfa 8 Gm Inhaler) 2 puffs INH QID PRN PRN Reason: Shortness Of Breath Stop: 04/02/24 18:18 Aspirin (Aspirin 81 Mg Ectab) 81 mg PO PM MAYNOR Stop: 04/02/24 20:59 Last Admin: 03/03/24 20:37 Dose: 81 mg Cephalexin HCl (Cephalexin 500 Mg Cap) 500 mg PO Q8 MAYNOR; Protocol Stop: 03/08/24 23:59 Last Admin: 03/04/24 05:45 Dose: 500 mg Citalopram Hydrobromide (Citalopram 20 Mg Tab) 10 mg PO QAM [facility] Stop: 04/03/24 08:59 Last Admin: 03/04/24 08:23 Dose: 20 mg Clopidogrel Bisulfate (Clopidogrel Bisulfate 75 Mg Tab) 75 mg PO PM [facility] Stop: 04/02/24 20:59 Last Admin: 03/03/24 20:37 Dose: 75 mg Dextrose (Dextrose 50% 50 Ml Syringe) 25 - 50 ml IV UD PRN; Protocol PRN Reason: Hypoglycemia Protocol Stop: 04/02/24 18:15 Enoxaparin Sodium (Enoxaparin Inj 40 Mg/0.4 Ml Syr) 40 mg SQ QAM [facility] Stop: 04/03/24 08:59 Last Admin: 03/04/24 08:23 Dose: 40 mg Gabapentin (Gabapentin 400 Mg Cap) 400 mg PO TID [facility] Stop: 04/02/24 20:59 Last Admin: 03/04/24 08:24 Dose: 400 mg Gemfibrozil (Gemfibrozil 600 Mg Tab) 600 mg PO BID MAYNOR Stop: 04/02/24 20:59 Last Admin: 03/04/24 08:24 Dose: 600 mg Glucagon (Glucagon For Inj 1 Mg Vial) 1 mg SQ UD PRN; Protocol PRN Reason: Hypoglycemia Protocol Stop: 04/02/24 18:15 Glucose (Glucose 40% Gel 15 Gm Tube) 15 - 30 gm PO UD PRN; Protocol PRN Reason: Hypoglycemia Protocol Stop: 04/02/24 18:15 Glucose (Glucose 10 Tab/Tube) 4 - 8 tab PO UD PRN; Protocol PRN Reason: Hypoglycemia Treatment Stop: 04/02/24 18:15 Insulin Aspart (Insulin Aspart Per Unit Charge) 0 units SC ACHS [facility] Stop: 04/02/24 20:59 Last Admin: 03/04/24 08:01 Dose: Not Given Insulin Glargine (Lantus Per Unit Charge) 15 units SQ BID [facility] Stop: 04/02/24 20:59 Last Admin: 03/04/24 08:27 Dose: Not Given Miscellaneous (Carbohydrates For Hypoglycemia ) 15 - 30 gm PO UD PRN PRN Reason: Hypoglycemia Protocol Stop: 04/02/24 18:15 Pantoprazole Sodium (Pantoprazole 40 Mg Tab) 40 mg PO PM MAYNOR; Protocol Stop: 04/02/24 20:59 Last Admin: 07/29/24 20:37 Dose: 40 mg Vitamin D (Cholecalciferol 25 Mcg (1000 Units) Tab) 50 mcg PO PM MAYNOR Stop: 04/02/24 20:59 Last Admin: 03/03/24 20:37 Dose: 50 mcg PG Care Time/CCT Total # of Minutes Spent Total Time Spent with Patient: Total time spent is greater than 50% in coordination of care (as documented) at patient's floor/unit and/or counseling patient: Coding Level of Care Code 55377 INT INP/OBS CARE 2/55MIN Diagnoses Bradycardia R00.1 Cerebrovascular accident (CVA), unspecified mechanism I63.9 CVA mechanism: unspecified LBBB (left bundle branch block) I44.7 (2) Stroke CVA mechanism: unspecified Qualified Code(s): I63.9 - Cerebral infarction, unspecified
--- NOTE | 2024-03-04 12:06 | Neurology Consultation ---
Date of Consultation March 04, 2024 Assessment & Plan (1) Stroke: Recommend admission for continued stroke work up to include the following: Continue frequent neurological assessments Obtain stat CT brain without contrast for any acute neurological decline Continue to monitor/control blood pressure & blood glucose Continue to monitor telemetry closely Recommend ZioPatch at DC if no evidence of arrhythmia during inpatient monitoring Continue to monitor renal and hepatic function, keep euvolemic Metabolic workup should include hgbA1c, fasting lipids, homocysteine, TSH, D Dimer, RPR, urinalysis Recommend DAPT for at least 3 weeks Recommend high dose statin therapy indefinitely if tolerated Okay from neurology perspective for VTE prophylaxis PT/OT/SLT to eval and treat Recommend eval for HAZEL and consider outpatient polysomnography Follow up outpatient Neurology Telehealth Consultation Telehealth Information Telehealth Information: I performed this visit using a real-time telehealth connection between my location and the patients location ([facility]). After connecting through interactive tele-video, patient was identified by name and date of and/or wristband check.Patient (or authorized healthcare arborist representative) was informed that this was a telemedicine visit and it was being conducted confidentially over secure lines. My office door was closed and no one else was present in the room with me.Patient (or authorized healthcare arborist representative) provided consent to proceed with the visit, expressed an understanding of privacy and security of the telemedicine visit, and gave permission to have a hospital arborist representative in the room in order to assist with the visit and to conduct portions of the visit, as needed. I informed the patient (or authorized healthcare arborist representative) that I reviewed their record and presented the opportunity for them to ask any questions regarding the visit today. The patient agreed to participate. History of Present Illness Reason for Consultation: Stroke Requesting Physician: Dr. Payan Attending Physician: Ora Barr MD History of Present Illness 68yo female with significant past medical history of hyperlipidemia TIA DM presented with reported diagnosis of a stroke a week prior with ongoing deficits including feeling Foggy waking up about a week ago went to ER in [place] but did not stay/transfer for MRI confirmation. Cardiology has been consulted. She was having some facial asymmetry and left leg weakness now reportedly resolved. She has undergone MRI brain revealing area of acute subacute restricted diffusion deep right subcortical region. She has undergone MRA head & neck without evidence of LVO or significant/flow limiting stenosis. I have performed televideo consultation. She is alert & oriented; able to answer all questions appropriately, name objects on televideo monitor, repeat phrases and perform complex/embedded commands without deficit. Neurological exam is non lateralizing/nonfocal in terms of motor strength and coordination. NIHSS=0. at bedside during exam. All questions answered. She reports cancelling her colorectal surgery scheduled this week. Otherwise no concerns. Denies complaint at this time; appears in no apparent distress or discomfort. Allergies Allergy/AdvReac Type Severity Reaction Status Date / Time carisoprodol [From [facility]] Allergy Intermediate CONFUSED/COULD Verified 03/03/24 13:45 NOT MOVE morphine Allergy Intermediate SWELLING, Verified 03/03/24 13:45 HIVES Lppojlu-UTI-AyG Reductase Allergy Intermediate Hives Verified 03/03/24 13:45 Inhibitor Sulfa (Sulfonamide Allergy Intermediate Hives Verified 03/03/24 13:45 Antibiotics) Home Medications Medication Instructions Recorded Confirmed Type aspirin 81 mg tablet,delayed 81 mg PO PM 08/15/19 03/03/24 History release (Aspir-) gemfibrozil 600 mg tablet 600 mg PO BID 08/15/19 03/03/24 History insulin aspart U-100 100 unit/mL 1 unit subcut BID 08/15/19 03/03/24 History (3 mL) subcutaneous pen (Novolog FlexPen U-100 Insulin aspart) insulin degludec 200 unit/mL (3 50 unit subcut QAM 08/15/19 03/03/24 History mL) subcutaneous pen (Tresiba FlexTouch U-200 insulin) citalopram 10 mg tablet 10 mg PO QAM 09/30/19 03/03/24 History albuterol sulfate 90 mcg/actuation 2 puff inhalation QID PRN SHORT OF 02/16/20 03/03/24 History aerosol inhaler (Ventolin HFA) BREATH omeprazole 20 mg tablet,delayed 20 mg PO PM 02/16/20 03/03/24 History release gabapentin 400 mg capsule 400 mg PO TID 02/08/24 03/03/24 History cephalexin 500 mg capsule 500 mg PO Q8H 03/03/24 03/03/24 History cholecalciferol (vitamin D3) 50 2,000 unit PO PM 03/03/24 03/03/24 History mcg (2,000 unit) capsule clopidogrel 75 mg tablet 75 mg PO PM 03/03/24 03/03/24 History metformin 500 mg tablet,extended 1,000 mg PO BID 03/03/24 03/03/24 History release 24 hr Patient History Medical History (Updated 03/04/24 @ 09:45 by Tian Frausto MD) 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 History of diabetic ulcer of foot Transient ischemic attack (TIA) few years ago, no deficits LBBB (left bundle branch block) Seasonal allergies Diverticular disease GERD (gastroesophageal reflux disease) Anxiety Peripheral neuropathy Hyperlipidemia Surgical History History of cholecystectomy Family history of reaction to anesthesia MOTHER/SISTER PONV Hx of cataract extraction BILAT History of hysterectomy Hx of foot surgery LEFT HAMMER TOE FIXED THEN INFECTED WITH AMPUTATION Hx of rotator cuff surgery LEFT History of colonoscopy Family History Sister Family history of diabetes mellitus Brother Family history of diabetes mellitus Mother Family history of diabetes mellitus Father Family history of diabetes mellitus Social History Smoking Status: Former smoker Tobacco Type: Cigarettes Do You Dip or Chew Tobacco: No; Hx Alcohol Use: No Hx Substance Use: No Preferred Language: Estonian Communication Ability: Effective Patient Sitter Required: No Beliefs That Will Affect Care: None Current Living Situation: Spouse Feels Safe at Home: Yes Safety Concerns: Feels Safe At This Time Assistive Devices: Denture - Upper and Glasses Assistive Devices Comment: partial - upper Physical Exam Neurological Examination: Mental Status: Awake and alert. Oriented to person, place, and time. Fluency naming repetition and comprehension appear grossly intact. Affect remains appropriate. CN testing: I: Denies changes in ability to smell II:Reports no changes in visual acuity III/IV/: No evidence of gaze preference, hippus, nystagmus or roving eye movements V: Facial sensation reportedly grossly intact to light touch bilaterally VII: Facial movements appear without evidence of asymmetry VIII: Hearing appears grossly intact to loud voice bilaterally IX/X: Palate appears to elevate symmetrically XI: Shoulder shrug appears symmetric/ grossly intact bilaterally XII: Tongue protrudes midline without evidence of biting Motor exam: Strength appears grossly intact/symmetric in all extremities Sensory: Sensation is reportedly grossly intact throughout Coordination: Finger to nose and heel to valencia were intact. No apparent evidence of dysmetria or dysdiadochokinesia Reflexes: Deferred Gait: Deferred Results & Data Vital Signs (Past 12 Hours) Vital Signs Temp Pulse Pulse Resp BP Pulse Ox O2 Del Method 03/04/24 11:40 36.5 C 98 H 18 143/68 H 98 Room Air 03/04/24 07:39 36.6 C 60 18 130/64 97 Room Air 03/04/24 07:30 56 L 03/04/24 02:33 36.6 C 67 17 129/69 100 Room Air Laboratory Results Abnormal lab results 03/03/24 03/03/24 03/03/24 Range/Units 11:47 14:25 18:46 Hct 35.9 L (37.0-47.0) % Sodium 131 L (136-145) mmol/L Creatinine 0.56 L (0.6-1.2) mg/dl BUN/Creatinine Ratio (10-20) Glucose 225 H (70-99(Fasting)) mg/dl POC Glucose 110 H (70-99) mg/dl Hemoglobin A1c (4.5-5.6) % 03/03/24 03/04/24 03/04/24 Range/Units 21:19 07:13 07:38 Hct 36.2 L (37.0-47.0) % Sodium (136-145) mmol/L Creatinine 0.51 L (0.6-1.2) mg/dl BUN/Creatinine Ratio 25.5 H (10-20) Glucose 63 L (70-99(Fasting)) mg/dl POC Glucose 103 H 67 L* (70-99) mg/dl Hemoglobin A1c 7.3 H (4.5-5.6) % 03/04/24 Range/Units 11:40 Hct (37.0-47.0) % Sodium (136-145) mmol/L Creatinine (0.6-1.2) mg/dl BUN/Creatinine Ratio (10-20) Glucose (70-99(Fasting)) mg/dl POC Glucose 171 H (70-99) mg/dl Hemoglobin A1c (4.5-5.6) % Diagnostic Findings Chest X-Ray 03/03/24 11:26 XR chest 1V not portable HISTORY: Stroke symptoms. COMPARISON: None. FINDINGS: The lungs are clear. Cardiac silhouette is normal in size. No pleural effusions. No pneumothorax. Calcifications within the aortic knob. Prior cholecystectomy. No acute fractures. IMPRESSION: No acute process. ACT 112: Negative or not required by law. Electronically signed by: Ray Gallegos M.D. 03/03/2024 12:[address] 03/03/24 12:[address] DOSE: 547.75 mGy.cm HISTORY: Left sided weakness x 1 week TECHNIQUE: Multiaxial CT images of the head were performed without the use of intravenous contrast. Automated exposure control was utilized for this study. A dose lowering technique was utilized adhering to the principles of ALARA. Comparison: None. Findings: The paranasal sinuses and mastoid air cells are clear. The calvarium and skull base are intact. Moderate calcifications within the carotid siphons. White matter hypodensity is nonspecific but suggestive of microvascular ischemic change. The ventricles and sulci demonstrate mild age-related involutional changes. There is a 15 mm hypodense focus within the right basal ganglia near the posterior limb of the right internal capsule best seen on image 14. This is age indeterminate but could represent a subacute to chronic infarct. There is no mass, hematoma, midline shift. Impression: 1. A 15 mm hypodense focus within the right basal ganglia. This is consistent with an age-indeterminate infarct but could be subacute to chronic. Consider follow-up brain MRI for further evaluation. 2. No acute intracranial hemorrhage. 3. Atrophy and microvascular ischemic changes are noted. ACT 112: Negative or not required by law. Electronically signed by: Ray Gallegos M.D. 03/03/2024 1:08 PM Brain MRI 03/03/24 14:09 MR brain wo/w con CLINICAL HISTORY: stroke TECHNIQUE: Multiplanar and multisequence MR images of the brain were obtained prior to and following administration of gadolinium contrast. Comparison: Comparison is made to CT head 03/03/2024 FINDINGS: There is a focus of restricted diffusion in the right basal ganglia corresponding to the hyperdense focus on prior CT head. There is associated edema but no evidence of hemorrhagic transformation. Foci of T2 and FLAIR hyperintensity are noted in the paraventricular areas consistent with chronic small vessel ischemic disease. Ex vacuo ventriculomegaly and sulcal enlargement is noted compatible with diffuse volume loss. No mass or abnormal enhancement is seen. There is no mass effect or midline shift. There is no evidence of acute intraparenchymal hemorrhage. No extra axial fluid collections are seen. The corpus callosum, pituitary gland, and cerebellar tonsils appear grossly unremarkable. Flow voids of the major intracranial arterial vessels are identified. The imaged portions of the paranasal sinuses, mastoid air cells, and orbits are unre markable. IMPRESSION: Focus of restricted diffusion in the right basal ganglia corresponds to the hyperdense focus on the prior CT head. Findings are compatible with acute infarct. ACT 112: Negative or not required by law. Electronically signed by: Alberto Koenig M.D. 03/03/2024 6:05 PM Head MRA 03/03/24 14:09 MR angio neck wo/w con, MR angio head wo con CLINICAL HISTORY: stroke TECHNIQUE: 3D time of flight MRA of the head and neck was performed without intravenous contrast. 3-D reconstructions were obtained in multiple planes. Comparison: None available at the time of this dictation. FINDINGS: Flow signal consistent with patency is shown within the common carotid, cervical segments of the internal carotid, external carotid, and vertebral arteries. No aneurysm, dissection, hemodynamically significant flow stenosis, nor occlusion is present. Flow signal is shown in the intracranial segments of the internal carotid arteries, the anterior, middle and posterior cerebral arteries, the anterior and posterior communicating arteries, cerebellar arteries, the intracranial segments of the vertebral arteries, and the basilar artery. No aneurysm, arteriovenous malformation, dissection, nor hemodynamically significant flow stenosis is shown. Assessment of stenosis of the internal carotid arteries is based on NASCET criteria. IMPRESSION: No evidence of acute intracranial abnormality. In particular, no occlusion, hemorrhage, or aneurysmal disease is seen. Patency of the bilateral carotid and vertebral arteries with no evidence of hemodynamically significant stenosis. ACT 112: Negative or not required by law. Electronically signed by: Alberto Koenig M.D. 03/03/2024 6:08 PM Neck MRA 03/03/24 14:09 MR angio neck wo/w con, MR angio head wo con CLINICAL HISTORY: stroke TECHNIQUE: 3D time of flight MRA of the head and neck was performed without intravenous contrast. 3-D reconstructions were obtained in multiple planes. Comparison: None available at the time of this dictation. FINDINGS: Flow signal consistent with patency is shown within the common carotid, cervical segments of the internal carotid, external carotid, and vertebral arteries. No aneurysm, dissection, hemodynamically significant flow stenosis, nor occlusion is present. Flow signal is shown in the intracranial segments of the internal carotid arteries, the anterior, middle and posterior cerebral arteries, the anterior and posterior communicating arteries, cerebellar arteries, the intracranial segments of the vertebral arteries, and the basilar artery. No aneurysm, arteriovenous malformation, dissection, nor hemodynamically significant flow stenosis is shown. Assessment of stenosis of the internal carotid arteries is based on NASCET criteria. IMPRESSION: No evidence of acute intracranial abnormality. In particular, no occlusion, hemorrhage, or aneurysmal disease is seen. Patency of the bilateral carotid and vertebral arteries with no evidence of hemodynamically significant stenosis. ACT 112: Negative or not required by law. Electronically signed by: Alberto Koenig M.D. 03/03/2024 6:08 PM Medications Administered Home Medications Medication Instructions Recorded Confirmed Last Taken aspirin 81 mg tablet,delayed 81 mg PO PM 08/15/19 03/03/24 03/02/24 release (Aspir-) gemfibrozil 600 mg tablet 600 mg PO BID 08/15/19 03/03/24 03/03/24 insulin aspart U-100 100 unit/mL 1 unit subcut BID 08/15/19 03/03/24 03/03/24 (3 mL) subcutaneous pen (Novolog FlexPen U-100 Insulin aspart) insulin degludec 200 unit/mL (3 50 unit subcut QAM 08/15/19 03/03/24 03/03/24 mL) subcutaneous pen (Tresiba FlexTouch U-200 insulin) citalopram 10 mg tablet 10 mg PO QAM 09/30/19 03/03/24 03/03/24 albuterol sulfate 90 mcg/actuation 2 puff inhalation QID PRN SHORT OF 02/16/20 03/03/24 Unknown aerosol inhaler (Ventolin HFA) BREATH omeprazole 20 mg tablet,delayed 20 mg PO PM 02/16/20 03/03/24 03/02/24 release gabapentin 400 mg capsule 400 mg PO TID 02/08/24 03/03/24 03/03/24 cephalexin 500 mg capsule 500 mg PO Q8H 03/03/24 03/03/24 03/03/24 cholecalciferol (vitamin D3) 50 2,000 unit PO PM 03/03/24 03/03/24 03/02/24 mcg (2,000 unit) capsule clopidogrel 75 mg tablet 75 mg PO PM 03/03/24 03/03/24 03/02/24 metformin 500 mg tablet,extended 1,000 mg PO BID 03/03/24 03/03/24 03/03/24 release 24 hr Active Medications Generic Name Dose Route Start Last Admin Trade Name Mary PRN Reason Stop Dose Admin Aspirin 81 mg 03/03/24 21:00 03/03/24 20:37 Aspirin 81 Mg Ectab PO 04/02/24 20:59 81 mg PM MAYNOR Administration Cephalexin HCl 500 mg 03/03/24 22:00 03/04/24 05:45 Cephalexin 500 Mg Cap PO 03/08/24 23:59 500 mg Q8 MAYNOR Administration Protocol Citalopram Hydrobromide 10 mg 03/04/24 09:00 03/04/24 08:23 Citalopram 20 Mg Tab PO 04/03/24 08:59 20 mg QAM MAYNOR Administration Clopidogrel Bisulfate 75 mg 03/03/24 21:00 03/03/24 20:37 Clopidogrel Bisulfate 75 Mg Tab PO 04/02/24 20:59 75 mg PM MAYNOR Administration Enoxaparin Sodium 40 mg 03/04/24 09:00 03/04/24 08:23 Enoxaparin Inj 40 Mg/0.4 Ml Syr SQ 04/03/24 08:59 40 mg QAM MAYNOR Administration Gabapentin 400 mg 03/03/24 21:00 03/04/24 08:24 Gabapentin 400 Mg Cap PO 04/02/24 20:59 400 mg TID MAYNOR Administration Gemfibrozil 600 mg 03/03/24 21:00 03/04/24 08:24 Gemfibrozil 600 Mg Tab PO 04/02/24 20:59 600 mg BID MAYNOR Administration Insulin Aspart 0 units 03/03/24 21:00 03/04/24 12:11 Insulin Aspart Per Unit Charge SC 04/02/24 20:59 5 units ACHS MAYNOR Administration Insulin Glargine 15 units 03/03/24 21:00 03/04/24 08:27 Lantus Per Unit Charge SQ 04/02/24 20:59 Not Given BID MAYNOR Pantoprazole Sodium 40 mg 03/03/24 21:00 03/03/24 20:37 Pantoprazole 40 Mg Tab PO 04/02/24 20:59 40 mg PM MAYNOR Administration Protocol Vitamin D 50 mcg 03/03/24 21:00 03/03/24 20:37 Cholecalciferol 25 Mcg (1000 Units) Tab PO 04/02/24 20:59 50 mcg PM MAYNOR Administration (1) Stroke CVA mechanism: unspecified Qualified Code(s): I63.9 - Cerebral infarction, unspecified
--- NOTE | 2024-03-04 15:41 | Hospitalist Progress Note ---
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 She was seen in the [place] ED last week but signed out because she preferred not to wait to be transferred for an MRI at another facility. She presented to this ED at referral from PCP office. On monitor in the ED, she was also noted to have episodes of bradycardia with HRs into the low 40s. Denied associated symptoms with these episodes in the ED but has had episodes of dizziness at home. c/w tele monitoring. MRA head and neck with no acute issues. Patency of the bilateral carotid and vertebral arteries with no evidence of hemodynamically significant stenosis. CT head with 15 mm hypodense focus within the right basal ganglia. MRI brain confirmed the acute stroke. LDL 55, A1c 7.3 PT/OT eval, home health. Neuro eval, DAPT for 3 weeks, Zio patch monitoring as an outpatient, blood pressure control, sleep study as an outpatient. Follow-up with neurology upon discharge. Discussed with cardiology, plan for 30-day monitor to eval for A-fib and more profound bradycardia and follow-up with cardiology in 1 month time. Will continue to monitor for bradycardia and monitor blood pressure today. (2) Bradycardia: Plan: Episodes of bradycardia noted on monitor in the ED - pt was told by another provider that she may need pacemaker placement. Not on any AV larissa blocking agents at present Cardiology evaluated, plan for outpatient Zio patch monitoring. Continue with telemetry monitoring. (3) Diabetes mellitus, type 2: Plan: Holding metformin Continue basal/bolus insulin A1c in the AM BSG ACHS Diabetic diet (4) Hypercholesterolemia: Plan: Unable to take a statin due to hives when taken previously LDL 55. Continue gemfibrozil (5) Diabetic peripheral neuropathy associated with type 2 diabetes mellitus: Plan: Chronic, continue gabapentin as taken outpatient Plan Code status: DNR/DNI DVT prophylaxis: Lovenox Admission and Anticipated Discharge Date Admission Date: March 03, 2024 Subjective Patient was seen and examined at bedside. patient was sitting up in chair, on room air, NAD, reports improving LLE weakness. Mild left facial droop noted. Patient denies any new numbness or tingling or focal weakness. Patient's at bedside who was also updated on plan of care. Physical Exam Physical Exam: GENERAL APPEARANCE: AxOx4, pleasant woman no acute distress. HEENT: NC, AT. MMM. EOMI, clear conjunctiva, oropharynx clear. NECK: Supple without lymphadenopathy. No stiffness or restricted ROM. HEART: bradycardia, regular, no murmur LUNGS: CTAB, moving air well. No crackles or wheezes are heard. ABDOMEN: Soft, nontender, nondistended with good bowel sounds heard. BACK: No CVAT, no obvious deformity. EXTREMITIES: Without cyanosis, clubbing or edema. NEUROLOGICAL: mild left facial droop/flattening of nasolabial fold, other cranial nerves seemingly intact; strength in BUE 5/5, 4/5 LLE strength, 5/5 RLE strength, no pronator drift Skin: Warm and dry without any rash. 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
[2024-03-05 06:53] LABS: Hematocrit (blood only) 38.3 % (37.0-47.0); Hemoglobin 13.4 g/dl (12.0-16.0); Mean Corpuscular Hemoglobin 28.9 pg (25.0-34.0); Mean Corpuscular Volume 82.5 fL (80.0-100.0); Mean Platelet Volume 10.6 fL (9.4-12.4); Platelet Count 256 K/uL (130-400); RDW Coefficient of Variation 12.7 % (11.5-14.5); RDW Standard Deviation 38.5 fL (36.4-46.3); Red Blood Count 4.64 M/uL (4.20-5.40); White Blood Count 5.47 K/ul (4.8-10.8)
[2024-03-05 07:41] LABS: D Dimer 760 ug/L FEU (0-500)
[2024-03-05 10:07] LABS: BUN Creatinine Ratio 23.4 (10-20); Calcium 9.5 mg/dl (8.6-10.3); Creatinine Clr Calc Pharmacy 73.1 ml/min; Est GFR (African American) 105.5 ml/min; Magnesium 2.1 mg/dl (1.7-2.4); Phosphorus 4.3 mg/dl (2.5-4.9); Potassium 4.5 mmol/L (3.5-5.1)
[2024-03-05 10:22] LABS: Thyroid Stimulating Hormone 3.341 uIu/ml (0.300-4.500)
--- NOTE | 2024-03-05 12:52 | Discharge Summary ---
Date of Service March 05, 2024 Admission HPI Per Admitting Provider This is a 68 y/o female with hypercholesterolemia, intermittent LBBB, DM2, prior TIAs, recurrent diverticulitis, and other history as outlined below who presents to the ED after having a stroke one week ago. Pt reports that she woke up last Sunday with stroke-like symptoms - "everything felt foggy and fuzzy." She didn't come in for evaluation at that time because she knew it had been more than three hours since her symptoms started and she didn't think anything could be done. She describes feeling like she was off balance and couldn't walk straight. She was seen in the ED at [place] on Sunday after the police pulled her over for driving erratically. The ED provider suspected that she had a stroke although initial imaging was negative. He also told her that she likely needed to get a pacemaker placed although she reports that she has never been told this before. She follows with [facility] cardiology. She denies chest pain or tightness, dyspnea on exertion, syncope. Has had occasional episodes of lightheadedness, may be worse with position changes. She was started on Plavix by the ED provider last week and has been taking this as prescribed as well as continuing to take a low-dose aspirin daily. Denies dysphagia but still has a mild facial droop for the last week that others have told her about although pt reports she doesn't notice it. She is also having weakness in the left leg since last Sunday, which is causing her to have trouble walking and she reports that she leans to the left with ambulation. She does not use a cane or walker at baseline. Pt has a reported history of prior TIAs but she is unsure what symptoms she had starting that she only knows she has these because they were seen on imaging. She is scheduled for a colon resection later this week due to recurrent diverticulitis. Lexiscan Cardiolite 09/03/2019 showed: 1. No scintigraphic evidence of a prior myocardial infarction or stress-induced myocardial ischemia. 2. No Lexiscan induced chest pain. 3. No Lexiscan induced EKG changes. 4. Normal left ventricular systolic function without wall motion abnormality. Left ventricular ejection fraction is 67%. Admission Exam Per Admitting Provider GENERAL APPEARANCE: AxOx4, pleasant woman no acute distress. HEENT: NC, AT. MMM. EOMI, clear conjunctiva, oropharynx clear. NECK: Supple without lymphadenopathy. No stiffness or restricted ROM. HEART: bradycardic to 40s, regular, no murmur LUNGS: CTAB, moving air well. No crackles or wheezes are heard. ABDOMEN: Soft, nontender, nondistended with good bowel sounds heard. BACK: No CVAT, no obvious deformity. EXTREMITIES: Without cyanosis, clubbing or edema. NEUROLOGICAL: mild left facial droop/flattening of nasolabial fold, other cranial nerves seemingly intact; strength in BUE 5/5, 4/5 LLE strength, 5/5 RLE strength, no pronator drift Skin: Warm and dry without any rash. Principal Diagnosis Stroke Discharge Exam Constitutional + well hydrated; no acute distress Eyes PERRL, conjunctivae normal, anicteric sclerae ENMT external ear and nose normal, oropharynx normal Respiratory normal respiratory effort, lungs clear to auscultation Cardiovascular Rate/Rhythm: regular rhythm and + bradycardic Gastrointestinal (Abdomen) normal bowel sounds, soft, nontender, no hepatosplenomegaly Musculoskeletal no cyanosis or clubbing, extremities motor strength 5/5 Neurologic PERRL, EOMI, accommodation nl, no face palsy, no dysarthria Psychiatric A+Ox3, euthymic affect Discharge Data Allergies Allergy/AdvReac Type Severity Reaction Status Date / Time carisoprodol [From Soma] Allergy Intermediate CONFUSED/COULD Verified 03/03/24 13:45 NOT MOVE morphine Allergy Intermediate SWELLING, Verified 03/03/24 13:45 HIVES [id number] Reductase Allergy Intermediate Hives Verified 03/03/24 13:45 Inhibitor Sulfa (Sulfonamide Allergy Intermediate Hives Verified 03/03/24 13:45 Antibiotics) Consultations 03/03/24 13:30 ED Decision to Admit Stat 03/03/24 14:14 Consult Cardiology Routine 03/03/24 18:18 Consult Neurology Routine Ordered Studies 03/03/24 12:15 CT head/brain wo con Stat 03/03/24 14:09 MRI Angio Brain [MR angio head wo con] Urgent MRI Angio Neck [MR angio neck wo/w con] Urgent MRI Brain [MR brain wo/w con] Urgent Hospital Course (1) Stroke: 68 y/o female with hypercholesterolemia, intermittent LBBB, DM2, prior TIAs, recurrent diverticulitis, and other history as outlined below who presents to the ED after having a stroke one week ago [employer]. She was seen in the [place] ED last week but signed out because she preferred not to wait to be transferred for an MRI at another facility. She presented to this ED at referral from PCP office. On monitor in the ED, she was also noted to have episodes of bradycardia with HRs into the low 40s. Denied associated symptoms with these episodes in the ED but has had episodes of dizziness at home. MRA head and neck with no acute issues. Patency of the bilateral carotid and vertebral arteries with no evidence of hemodynamically significant stenosis. CT head with 15 mm hypodense focus within the right basal ganglia. MRI brain confirmed the acute stroke. LDL 55, A1c 7.3 Neuro evaluated and recommended DAPT for 3 weeks, Zio patch monitoring as an outpatient, blood pressure control, sleep study as an outpatient. Patient is to follow-up with neurology upon discharge. Cardiology recommends for 30-day holter monitor to eval for A-fib and more profound bradycardia and follow-up with cardiology in 1 month time. PCP to arrange monitor Patient has allergy to statin (2) Bradycardia: Episodes of bradycardia noted on monitor in the ED - pt was told by another provider that she may need pacemaker placement. Not on any AV larissa blocking agents at present Discussed with Cardiology today. Bradycardia is asymptomatic. HR in 50s today Cardiology recommends follow up outpatient (3) Diabetes mellitus, type 2: A1c 7.3 Continue home metformin, insulin (4) Hypercholesterolemia: Unable to take a statin due to hives when taken previously LDL 55. Continue gemfibrozil (5) Diabetic peripheral neuropathy associated with type 2 diabetes mellitus: Chronic, continue gabapentin as taken outpatient Total Time Total Time Spent Total Time Spent (In Minutes): 35 Total Time Includes: Examination of the Patient, Discharge Planning and Medication Reconciliation Discharge Plan Discharge Items Patient Disposition: Home - Self-Care Reason For Visit: STROKE Discharge Diagnosis: Cerebrovascular accident (Stroke) Asymptomatic bradycardia Activity: Resume your previous activity Non-emergency contact: Primary Care Provider, Cooler Tender and Neurologist Call non-emergency contact if: you have any medication questions Follow-up/Referrals: Leander Abrams, [Primary Care Provider] - Diet: Carb Consistent or DM2 and Heart Healthy Addtl Attending Provider Instructions: Mrs Tootie Moscoso were admitted to the hospital and managed for stroke seen on CT head and MRI brain. You are being discharged on dual antiplatelet therapy (aspirin and plavix) for atleast 3 weeks, after which you will be on one or as recommended by Neurology. Please ensure follow up with Neurology Please ensure follow up with your Family Doctor who will arrange Zio patch testing/Holter monitor. Please ensure follow up with your Cooler Tender. It was a pleasure taking care of you. Pending Studies at Discharge: No Stand-Alone Forms: My [facility], Smoking Cessation Medications and DC Order Prescriptions: New aspirin 81 mg Tablet,Delayed Release (Dr/Ec) 81 mg PO PM Qty: 30 0RF Continued citalopram 10 mg tablet 10 mg PO QAM gabapentin 400 mg capsule 400 mg PO TID albuterol sulfate [Ventolin HFA] 90 mcg/actuation Hfa Aerosol Inhaler 2 puff INHALATION QID PRN (Reason: SHORT OF BREATH) gemfibrozil 600 mg Tablet 600 mg PO BID insulin aspart U-100 [Novolog FlexPen U-100 Insulin] 100 unit/mL (3 mL) Insulin Pen 1 unit SUBCUT BID Rx Instructions: 1 UNIT PER Q 10 CARBS insulin degludec [Tresiba FlexTouch U-200] 200 unit/mL (3 mL) Insulin Pen 50 unit SUBCUT QAM cephalexin 500 mg capsule 500 mg PO Q8H Rx Instructions: Start Date 03/02/24 x7 days metformin 500 mg tablet extended release 24 hr 1,000 mg PO BID cholecalciferol (vitamin D3) 50 mcg (2,000 unit) capsule 2,000 unit PO PM clopidogrel 75 mg tablet 75 mg PO PM Qty: 20 0RF Discontinued omeprazole 20 mg Tablet,Delayed Release (Dr/Ec) 20 mg PO PM aspirin [Aspir-81] 81 mg Tablet,Delayed Release (Dr/Ec) 81 mg PO PM Discharge Orders: Discharge Order (Routine); Ordered 03/05/24 Ordered By: [place]/Other Patient Handouts: Managing Type 2 Diabetes Admission Data Admit Date/Time: 03/03/24 13:46 Attending Provider: Antonieat Slater I. Admit Provider: Day Henao Primary Care Provider: Leander Abrams Other Providers: Day Henao; Ryan Hernández; Henrik Woodward; Ora Barr Other Interventions: Discharge Summary Assessment (RN) Last Done: 03/05/24 12:54
== END 2024-03-05 13:24 | disposition home or self-care (01) | DRG 66 ==
LOC: ED 11:19 → EDINP 13:46 → SUATTDRO 13:46 → 2S 20:32